=== PATIENT | male | born 1965 | race Caucasian/White ===

== ENCOUNTER 2025-08-24 09:32 | Inpatient (IN) ==
--- NOTE | 2025-08-24 09:50 | Emergency Department Note ---
Impression & Plan Pneumonia, Malignant neoplasm of base of tongue, Malnutrition, Acute dehydration ED Provider Note NAME: MELIDA ROBISON AGE: 60 SEX: M : 1965 ARRIVES VIA: Ambulance INFORMANT: Patient, ED PROVIDER(S): John Swanson MD CHIEF COMPLAINT: Hallucinations, headache MEDICAL DECISION MAKING: Patient presents with the above. IV was established and blood work was obtained. The patient appears very unkept and unconcerned about his care at home. Patient's blood work shows a white count of 16 patient with a hemoglobin of 9. Platelet count is 611. Kidney function is unremarkable but with prerenal azotemia. Patient with hypertension patient was ordered antibiotics given the patient's chest x-ray showed possible metastatic disease versus pneumonia. Patient was ordered additional IV fluids. I did speak to the hospitalist service and also mention that did not believe the patient was able to take care of himself and other his family taking adequate care of the patient at home. Patient was admitted to Dr. Brian. Discussion w/ other healthcare providers: Mayelin francis PA-C and Dr. Caldwell patient medicine service Prior /Outside records reviewed: none Differential diagnosis: Infection, dehydration, metabolic abnormality, hypo/hyperglycemia, electrolyte imbalance, anemia, UTI, pneumonia, thyroid dysfunction among others were considered. Diagnostics, as interpreted by me: ECG:Normal sinus rhythm, rate of 71, normal intervals, normal axis no ST elevations. Cardiac monitoring: An order was placed for continuous cardiac monitoring. The monitor shows a rate of 72 with sinus rhythm. Patient was placed on pulse oximetry Medical decision rules: none Imaging studies: I informally interpreted the patient's chest x-ray shows possible right-sided pneumonia with formal report to follow. HPI: Patient presents due to concern for headache and associated hallucinations reportedly. The patient states that he was carrying tomatoes on a trays a few "wood in a restaurant." The patient states that he dropped them all over himself. The patient states that his is lactating and he was "getting pissed off." Patient states that he began having frontal headaches last night. 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 PAST MEDICAL HISTORY: See Below PAST SURGICAL HISTORY: See Below SOCIAL HISTORY: See Below HOME MEDICATIONS: See Below ALLERGIES: See Below VITALS: See Below PHYSICAL EXAMINATION: GENERAL: NAD, non-toxic. Disheveled. EYE EXAM: Normal conjunctiva. PERRL, no anisocoria and EOM's grossly intact w/o pain. OROPHARYNX: Dry mucus membranes, poor dentition. NECK: Trachea midline, no stridor. Mass noted to the left side of the neck. LUNGS: Clear to auscultation. Normal chest wall mechanics. HEART: NSR, no MRG. ABDOMEN: Abdomen soft, non-tender, no masses, no rebound or guarding. BACK: No CVA TTP. SKIN: No rashes and no bruising. UPPER EXTREMITIES: Upper extremities are grossly normal. LOWER EXTREMITIES: Grossly normal, no edema. NEURO EXAM: Awake and alert, follows commands, no obvious facial asymmetry, normal speech, moves all 4 extremities. Good finger-nose, no drift. 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) Medical History Gastrostomy tube in place Family History Mother Stomach cancer, Onset Age: 78 chemo Father Lung cancer, Onset Age: 70 Social History Smoking Status: Heavy tobacco smoker Tobacco Type: Smokeless Tobacco (Dip or Chew) Age Started Using Tobacco: 10; Age Quit Using Tobacco: 59; packs per day: 2; Second Hand Exposure: Yes; Do You Dip or Chew Tobacco: Yes (history of); Hx Alcohol Use: No Hx Substance Use: No Preferred Language: Serbian Communication Ability: Effective Acid Tank Liner Required: No Beliefs That Will Affect Care: None marital status: Current Living Situation: Spouse Current Living Situation Comment: home with current occupational status: unemployed 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 [employer]; Other Information That Helps Us Care for You: No Feels Safe at Home: Yes Safety Concerns: Feels Safe At This Time Childhood Exposure to Second-Hand Smoke: Yes Assistive Devices: Walker Allergies Allergies Allergy/AdvReac Type Severity Reaction Status Date / Time No Known Drug Allergies Allergy Unknown Verified 08/24/25 18:11 Home Meds Home Medications Medication Instructions Recorded Confirmed acetaminophen 325 mg tablet 325 mg PO QID PRN Pain 06/12/25 08/24/25 (Tylenol) buprenorphine 5 mcg/hour weekly 1 patch transdermal Q7D 07/31/25 08/24/25 transdermal patch (Butrans) ibuprofen 200 mg tablet (Advil) 200 mg PO Q6H PRN Pain 07/31/25 08/24/25 guar gum (Nutrisource Fiber oral 4 g feeding tube UD 08/24/25 08/24/25 powder) lactulose 10 gram/15 mL oral 15 ml PO TID 08/24/25 08/24/25 solution morphine 15 mg immediate release 15 mg PO Q6H PRN Severe Pain 08/24/25 08/24/25 tablet (Scale Score 7-10) nutritional supplements 250 ea feeding tube UD 08/24/25 08/24/25 ondansetron 8 mg disintegrating 8 mg PO Q8H PRN Nausea 08/24/25 08/24/25 tablet prochlorperazine maleate 10 mg 10 mg PO Q6H PRN Nausea 08/24/25 08/24/25 tablet water 1 ea 08/24/25 Results & Data (ED) Home Medications Current Medication List: was personally reviewed by me Laboratory Data Attestation: I reviewed the patient's lab results. 08/25/25 07:04 08/25/25 07:04 Lab Results 08/24/25 Range/Units 10:07 WBC 16.29 H (4.8-10.8) K/ul RBC 3.45 L (4.70-6.10) M/uL Hgb 9.9 L (14.0-18.0) g/dl Hct 30.1 L (42.0-52.0) % MCV 87.2 (80.0-100.0) fL MCH 28.7 (25.0-34.0) pg MCHC 32.9 (32.0-36.0) g/dL RDW Std Deviation 43.8 (36.4-46.3) fL RDW Coeff of Brandon 13.8 (11.5-14.5) % Plt Count 611 H (130-400) K/uL MPV 9.6 (9.4-12.4) fL Immature Gran % (Auto) 0.5 % Neut % (Auto) 86.9 % Lymph % (Auto) 7.5 % [place] % (Auto) 4.8 % Eos % (Auto) 0.2 % Baso % (Auto) 0.1 % Neut # (Auto) 14.15 H (1.40-6.50) K/uL Lymph # (Auto) 1.22 (1.20-3.40) K/uL [place] # (Auto) 0.78 H (0.11-0.59) K/uL Eos # (Auto) 0.04 (0.00-0.50) K/uL Baso # (Auto) 0.02 (0.00-0.20) K/uL Immature Gran # (Auto) 0.08 (0.01-0.20) K/uL Sodium 135 L (136-145) mmol/L Potassium 3.6 (3.5-5.1) mmol/L Chloride 90 L (98-107) mmol/L Carbon Dioxide 37 H (21-32) mmol/L Anion Gap 8 (3-11) BUN 24 H (6-23) mg/dl Creatinine 0.64 (0.6-1.4) mg/dl Est Cr Clr Drug Dosing Not Reportable eGFR 107.71 BUN/Creatinine Ratio 37.5 H (10-20) Glucose 115 H (70-99(Fasting)) mg/dl Calcium 10.5 H (8.6-10.3) mg/dl Magnesium 2.3 (1.7-2.4) mg/dl Total Bilirubin 0.5 (0.2-1.0) mg/dl AST 17 (13-39) U/L ALT 15 (7-52) U/L Alkaline Phosphatase 83 (34-104) U/L Total Protein 7.5 (6.0-8.3) gm/dl Albumin 3.2 L (3.4-5.0) gm/dl Globulin 4.3 H (2.5-4.0) gm/dl Albumin/Globulin Ratio 0.7 L (0.9-2) Procalcitonin 0.08 (0-0.5) ng/ml TSH 0.349 (0.300-4.500) uIu/ml Administered Medications Buprenorphine HCl (Buprenorphine 5 Mcg/Hr Tdsy) 1 patch TD Q7D MOHINI Stop: 09/23/25 18:14 Last Admin: 08/24/25 20:32 Dose: 1 patch Documented By: VERONIKA Potassium Chloride/Sodium Chloride (Normal Saline W/20 Meq Kcl) 20 meq in 1,000 mls @ 100 mls/hr IV .Q10H MHOINI Stop: 08/26/25 07:44 Last Admin: 08/25/25 12:22 Dose: 100 mls/hr Documented By: EHSAN Miscellaneous (Remove & Waste Butrans Patch 1 Ea Ea) 1 each N/A Q7D MOHINI Stop: 09/23/25 18:13 Last Admin: 08/24/25 20:36 Dose: Not Given Documented By: VERONIKA [place] (Check Buprenorphine Patch) 1 each N/A QS MOHINI Stop: 09/23/25 18:02 Last Admin: 08/25/25 08:26 Dose: 1 each Documented By: Admin: 08/24/25 23:41 Dose: 1 each Documented By: Admin: 08/24/25 20:35 Dose: 1 each Documented By: VERONIKA [place] (Remove Nicoderm Patch) 1 each N/A DAILY@0859 [facility] Stop: 09/24/25 08:58 Last Admin: 08/25/25 08:26 Dose: Not Given Documented By: EHSAN Nicotine (Nicotine 14 Mg/24 Hr Patch) 1 patch TD QAM MOHINI Stop: 09/23/25 18:14 Last Admin: 08/25/25 08:26 Dose: Not Given Documented By: Admin: 08/24/25 20:23 Dose: Not Given Documented By: VERONIKA Nutritional Formula (Nutren Liqd 2.0 1,000 Ml Bag) 250 ml PEG QID@0800,1200,1600,2000 MOHINI Stop: 09/24/25 07:59 Last Admin: 08/25/25 12:22 Dose: 250 ml Documented By: Admin: 08/25/25 08:26 Dose: 250 ml Documented By: EHSAN Polyethylene Glycol (Polyethylene (Miralax) 17 Gm Pack) 17 gm PO DAILY MOHINI Stop: 09/24/25 08:59 Last Admin: 08/25/25 10:43 Dose: 17 gm Documented By: EHSAN Sterile Water (Tube Feeding Water Flush) 150 ml GT QID@0730,1130,1530,1930 MOHINI Stop: 09/24/25 07:29 Last Admin: 08/25/25 12:22 Dose: 150 ml Documented By: Admin: 08/25/25 08:26 Dose: 150 ml Documented By: EHSAN Sterile Water (Tube Feeding Water Flush) 150 ml GT QID@0830,1230,1630,2030 MOHINI Stop: 09/24/25 08:29 Last Admin: 08/25/25 12:22 Dose: 150 ml Documented By: Admin: 08/25/25 08:26 Dose: 150 ml Documented By: EHSAN Discontinued Medications Bisacodyl (Bisacodyl 10 Mg Supp) 10 mg NH NOW STA Stop: 08/24/25 16:33 Last Admin: 08/24/25 18:53 Dose: 10 mg Documented By: EHSAN Bisacodyl (Bisacodyl 10 Mg Supp) Confirm Administered Dose 10 mg NH .STK-MED ONE Stop: 08/24/25 18:52 Last Admin: 08/24/25 18:53 Dose: Not Given Documented By: EHSAN Sodium Chloride (Nss) 1,000 mls @ 999 mls/hr IV .Q1H1M MOHINI Stop: 08/24/25 11:15 Last Infusion: 08/24/25 12:55 Dose: Infused Documented By: Admin: 08/24/25 11:54 Dose: 999 mls/hr Documented By: KD Sodium Chloride (Nss) 1,000 mls @ 999 mls/hr IV .Q1H1M ONE Stop: 08/24/25 13:45 Last Infusion: 08/24/25 14:31 Dose: Infused Documented By: Admin: 08/24/25 13:30 Dose: 999 mls/hr Documented By: KD Ceftriaxone Sodium (Rocephin) 2,000 mg in 50 mls @ 100 mls/hr IV NOW STA Stop: 08/24/25 13:14 Last Infusion: 08/24/25 14:00 Dose: Infused Documented By: Admin: 08/24/25 13:30 Dose: 100 mls/hr Documented By: KD Sodium Chloride (Nss) 1,000 mls @ 999 mls/hr IV .Q1H1M ONE Stop: 08/24/25 14:22 Last Admin: 08/24/25 13:35 Dose: Not Given Documented By: KD Azithromycin (Zithromax) 500 mg in 255 mls @ 127.5 mls/hr IV NOW ONE Stop: 08/24/25 16:25 Last Infusion: 08/24/25 18:36 Dose: Infused Documented By: Admin: 08/24/25 15:35 Dose: 127.5 mls/hr Documented By: ARINA Piperacillin Sod/Tazobactam Sod (Zosyn) 4.5 gm in 100 mls @ 200 mls/hr IV ONE ONE; Protocol Stop: 08/25/25 09:14 Last Infusion: 08/25/25 11:15 Dose: Infused Documented By: Admin: 08/25/25 10:43 Dose: 200 mls/hr Documented By: EHSAN Ioversol (Optiray 320 100ml) 90 ml IV ONCE ONE Stop: 08/24/25 15:24 Last Admin: 08/24/25 15:24 Dose: 90 ml Documented By: HANY Nutritional Formula (Nutren Liqd 2.0 1,000 Ml Bag) 250 ml GJT [id number] MOHINI Stop: 09/23/25 18:59 Last Admin: 08/24/25 20:15 Dose: 250 ml Documented By: TIMMYK Potassium Chloride (Potassium Chloride 20 Meq/15 Ml Udc) 20 meq GT ONE ONE Stop: 08/24/25 18:16 Last Admin: 08/24/25 20:20 Dose: 20 meq Documented By: EFK Sterile Water (Tube Feeding Water Flush) 90 ml GT 0630,1030,1430,1830,2230 [facility]; Protocol Stop: 09/23/25 18:54 Last Admin: 08/24/25 23:42 Dose: Not Given Documented By: EFK Sterile Water (Tube Feeding Water Flush) 120 ml GT QID MOHINI Stop: 09/23/25 20:59 Last Admin: 08/24/25 20:16 Dose: 120 ml Documented By: TIMMYK Imaging Data Radiologist's Impression: Head CT 08/24/25 10:02 CT SCAN OF THE BRAIN WITHOUT IV CONTRAST CLINICAL HISTORY: Intermittent headaches. Visual hallucinations. COMPARISON STUDY: Head CT June 08, 2025. TECHNIQUE: Unenhanced axial CT scan of the brain was performed from the vertex to the skull base. A dose lowering technique was utilized adhering to the principles of ALARA. CT DOSE: 625.8 mGy.cm FINDINGS: Brain parenchyma: No acute intracranial hemorrhage, midline shift or mass effect is present. Hsu-white matter differentiation is preserved. There are no extra- axial fluid collections. There are no findings to suggest acute dural sinus thrombosis or acute territorial infarct. White matter hypodensities are similar to prior exam and favor small vessel disease. Ventricles, sulci, cisterns: There is no hydrocephalus. The basal cisterns are patent. Calvarium: Unremarkable. Sinuses and mastoids: The visualized paranasal sinuses are clear. The mastoid air cells are well pneumatized. Orbits: The bony orbits are grossly intact. IMPRESSION: No acute intracranial findings. No change in appearance of the brain. ACT 112: Negative or not required by law. Electronically signed by: Saul Segovia M.D. 08/24/2025 12:16 PM Chest X-Ray 08/24/25 10:07 XR chest 1V portable CLINICAL HISTORY: weakness COMPARISON STUDY: 06/08/2025 FINDINGS: There is an interval mass like density at the right lung apex. There is a faint nodular density lateral right midlung. No lobar consolidation or pleural effusion seen. No pneumothorax. IMPRESSION: Pulmonary masses/nodules on the right versus nodular pneumonia. Follow-up CT scan of the chest recommended. ACT 112: Negative or not required by law. Electronically signed by: Victor Manuel Vargas M.D. 08/24/2025 10:56 AM Discharge Plan Visit Data Chief Complaint: Headache Stated Complaint: HEADACHE, HALLUCINATIONS ED Provider: John Swanson Discharge Problem: Pneumonia, Malignant neoplasm of base of tongue, Malnutrition, Acute dehydration Patient Disposition: Admitted As Inpatient Condition: Fair Discharge Instructions Interventions: ED Discharge Assessment Last Done: 08/24/25 17:47 Discharge Problem: Pneumonia Qualifiers: Pneumonia type: due to unspecified organism Laterality: right Lung location: u nspecified part of lung Qualified Code(s): J18.9 - Pneumonia, unspecified organism Malnutrition Qualifiers: Malnutrition type: unspecified type Qualified Code(s): E46 - Unspecified protein-calorie malnutrition
[2025-08-24 10:22] LABS: Hematocrit (blood only) 30.1 % (42.0-52.0); Hemoglobin 9.9 g/dl (14.0-18.0); Immature Granulocytes # (auto) 0.08 K/uL (0.01-0.20); Immature Granulocytes % (auto) 0.5 %; Mean Corpuscular Hemoglobin 28.7 pg (25.0-34.0); Mean Corpuscular Volume 87.2 fL (80.0-100.0); Platelet Count 611 K/uL (130-400); RDW Standard Deviation 43.8 fL (36.4-46.3); Red Blood Count 3.45 M/uL (4.70-6.10); White Blood Count 16.29 K/ul (4.8-10.8)
[2025-08-24 10:45] LABS: Alanine Aminotransferase 15 U/L (7-52); Albumin Globulin Ratio 0.7 (0.9-2); Albumin Level 3.2 gm/dl (3.4-5.0); Alkaline Phosphatase 83 U/L (34-104); Anion Gap 8 (3-11); Bilirubin,Total 0.5 mg/dl (0.2-1.0); Blood Urea Nitrogen 24 mg/dl (6-23); Calcium 10.5 mg/dl (8.6-10.3); Carbon Dioxide 37 mmol/L (21-32); Chloride 90 mmol/L (98-107); Globulin 4.3 gm/dl (2.5-4.0); Glucose 115 mg/dl (70-99(Fasting)); Potassium 3.6 mmol/L (3.5-5.1); Sodium 135 mmol/L (136-145); Total Protein 7.5 gm/dl (6.0-8.3)
[2025-08-24 10:57] LABS: Thyroid Stimulating Hormone 0.349 uIu/ml (0.300-4.500)
--- NOTE | 2025-08-24 10:57 | XRay Report ---
XR chest 1V portable CLINICAL HISTORY: weakness COMPARISON STUDY: 06/08/2025 FINDINGS: There is an interval mass like density at the right lung apex. There is a faint nodular den sity lateral right midlung. No lobar consolidation or pleural effusion seen. No pneumothorax. IMPRESSION: Pulmonary masses/nodules on the right versus nodular pneumonia. Follow-up CT scan of the chest recommended. ACT 112: Negative or not required by law. Electronically signed by: Victor Manuel Vargas M.D. 08/24/2025 10:56 AM
[2025-08-24] MEDS: SODIUM CHLORIDE 0.9% 1,000 ML IV SCH (11:54)
--- NOTE | 2025-08-24 12:17 | CT Scan Report ---
CT SCAN OF THE BRAIN WITHOUT IV CONTRAST CLINICAL HISTORY: Intermittent headaches. Visual hallucinations. COMPARISON STUDY: Head CT June 08, 2025. TECHNIQUE: Unenhanced axial CT scan of the brain was performed from the vertex to the skull base. A dose lowering technique was utilized adhering to the principles of ALARA. CT DOSE: 625.8 mGy.cm FINDINGS: Brain parenchyma: No acute intracranial hemorrhage, midline shift or mass effect is present. Hsu-whi te matter differentiation is preserved. There are no extra-axial fluid collections. There are no find ings to suggest acute dural sinus thrombosis or acute territorial infarct. White matter hypodensities are similar to prior exam and favor small vessel disease. Ventricles, sulci, cisterns: There is no hydrocephalus. The basal cisterns are patent. Calvarium: Unremarkable. Sinuses and mastoids: The visualized paranasal sinuses are clear. The mastoid air cells are well pneu matized. Orbits: The bony orbits are grossly intact. IMPRESSION: No acute intracranial findings. No change in appearance of the brain. ACT 112: Negative or not required by law. Electronically signed by: Saul Segovia M.D. 08/24/2025 12:16 PM
--- NOTE | 2025-08-24 13:20 | History & Physical Report ---
<Statement entered by Nino Escalante DO - 08/24/25 21:32> I have seen and examined the patient and have discussed the case with the advance practice provider. I have reviewed the advanced practitioner's documentation, and I agree with, and take responsibility for that plan of care. Patient and essentially extremely overwhelmed with his care. Spent some time with both of them explaining that his symptoms are really related to the fact that he is not getting enough nutrition and hydration. Case management to help coordinate home assistance/home health care. Encouraged patient and to continue to reassess overall goals of care Plan of care as outlined below I spent a total of 21 minutes coordinating, documenting, and providing care for this patient excluding time spent by another provider/QHP. Date of Service August 24, 2025 Assessment & Plan (1) AMS (altered mental status): (2) Malnutrition: (3) Gastrostomy tube in place: (4) Tongue cancer: Plan: #Possible metabolic encephalopathy #Chronic anemia Patient discussed with ER provider Patient is 60 year old male with PMH oropharyngeal squamous cell carcinoma, h/o oropharyngeal bleeding in 05/2025, ongoing dysphagia and hoarseness, protein calorie malnutrition, has G tube in place and on tube feeds presented to ER with with c/o AMS with hallucinations last night. Currently pt not experiencing hallucinations, is alert, oriented to person, oly ce, season and year. In ER afebrile, P: 72, R: 18, BP 98/57, 96% on room air WBC: 16 (11 on 07/05/25), H/H: 9.9/30 (baseline hgb: 8's-10) CT Head:No acute intracranial findings. No change in appearance of the brain. In ER given 2L NSS NPO Will continue home tube feeds and water flushes at outpatient nutrition recommendations (Pt hasn't been receiving recommended amounts at home) 08/16/25 Outpatient Nutrition note: Nutren 2.0 administered by gravity bag five times a day (1,250 mL/day) -Each carton provides 500 kcals, 21 g protein, 173 mL water Water Flushes: 90 mL before and after each feed (900 mL). 120 mL water flushes QID (480 mL) 1 serving (4 g total weight, 3 g dietary fiber, 5 calories) of nutrisource fiber in with every feed. Place Medical Appliance Maker consult here Patient currently on morphine tablets. Will switch oral solution at this time given patient's dysphagia and will likely need discharged on solution. Continue buprenorphine patch. IV Tylenol prn 08/23/25 first dose of carboplatin. Started radiation this week. Following with med oncology, Dr Brown and radiation oncology, Dr Marino Haney CBC, CMP in am Per Outpatient chart review: 05/17/2025 CT chest: There is no evidence of metastatic disease. Small ground-glass centrilobular nodules throughout the lung elliott may be secondary to respiratory bronchiolitis. 05/30/2025 PET scan: 1. 7 (CC) x 4.6 (AP) x 4.1 (TV) cm metabolically-active necrotic mass within the left base of tongue/tonsillar fossa, consistent with biopsy-proven malignancy. 2. Metabolically-active necrotic bilateral level II; and left supraclavicular lymph node metastases. 3. 6.5 cm (CC) metabolically-active circumferential wall thickening within the ascending colon. Differential considerations include peristalsis and primary colon cancer. Further evaluation can be obtained with colonoscopy. #Possible Pneumonia DDx: malignancy CXR: Pulmonary masses/nodules on the right versus nodular pneumonia. Follow-up CT scan of the chest recommended. WBC: 16 In ER given 2L NSS, Rocephin Procalcitonin pending Obtain blood cultures Is aspiration risk Aspiration precautions Continue Rocephin, add Zithromax Obtain CT chest to R/L pneumonia versus malignancy UA pending CBC in am #Hypokalemia K: 3.6 Will give dose potassium elixer through Gtube today Magnesium lab pending Monitor daily labs, may need to further adjust #Chronic hypotension Likely secondary to poor intake Improved with IVF Monitor Restart tube feeds as above #Constipation Reported no BM >1 week Previously prescribed lactulose however pt not using Denies abdominal pain Obtain KUB Dulcolax suppository now #Tobacco use Prior cigarette smoker, reports quit but did smoke 1 cigarette this week Still chewing tobacco, reports 1 can a week Nicotine patch Encouraged cessation DVT Prophylaxis SCDs for now given h/o oropharyngeal bleeding Admit telemetry Discussed code status with patient and his . Patient voices DNR/DNI status and at bedside agrees. Follows with Dr Mancia for routine care Pt was seen and care coordinated with Dr Escalante. See addendum I spent a total of 79 minutes reviewing notes, outpatient records, labs, medication, coordinating, documenting and providing care for this patient excluding time spent in the performance of separately billed services and excluding time spent by another provider/QHP. History of Present Illness Chief Complaint: AMS Primary Care Provider: Abdon Mancia MD Patient is 60 year old male with PMH oropharyngeal squamous cell carcinoma, h/o oropharyngeal bleeding in 05/2025, ongoing dysphagia and hoarseness, protein calorie malnutrition, has G tube in place and on tube feeds presented to ER with with c/o AMS with hallucinations last night. Per she reports patient seemed to have visual hallucinations last night in which he reported he was carrying tomatoes. Per chart review feeding tube placed 07/05/2025. Per has just been doing feedings through tube for a couple of weeks as she reports she was unsure how to administer tube feeds. She expresses that she is overwhelmed and uncomfortable with tube feeds at home. She voices is trying to get home health nurse in to help. Per chart review patient to be receiving tube feeds five times a day but is giving three times a day as she states patient doesn't want any more frequent doses and states not doing the recommended amount of free water flushes. Reports patient takes pills by mouth and tries sipping on water but is often unable to swallow. Reports some intermittent choking. Patient reports still chewing tobacco. Patient now using morphine tablets and reports tries to cut them up smaller to assist in him taking. Reports patient tries not to take morphine very often but is using his buprenorphine patch. states will sometimes use ibuprofen as needed for ANNA, tongue and neck pain. Reports ongoing frontal ANNA that has been present since April 2025. denies any increased ANNA or intensity. Patient reports his goal would be to return home and is not interested in placement. Is following with oncology, Dr Brown and Radiation oncology, Dr Marino Haney. reports first chemo treatment was yesterday and states started radiation this week. Per outpatient chart review [facility] Palliative visit on 07/25/25 reporting intractable ANNA, had noted hypotension. Per outpatient review patient has had ongoing hypotension. reports has lactulose to use for constipation at home however has not been using. Patient reports been over a week since last BM. Denies fever/chills, diaphoresis, vomiting, diarrhea, dizziness, syncope, vision changes, CP, SOB, palpitations, rhinorrhea, abdominal pain, extremity edema, rashes, urinary symptoms. Allergies Allergy/AdvReac Type Severity Reaction Status Date / Time No Known Drug Allergies Allergy Unknown Verified 08/24/25 18:11 Home Medications Medication Instructions Recorded Confirmed Type acetaminophen 325 mg tablet 325 mg PO QID PRN Pain 06/12/25 08/24/25 History (Tylenol) buprenorphine 5 mcg/hour weekly 1 patch transdermal Q7D 07/31/25 08/24/25 History transdermal patch (Butrans) ibuprofen 200 mg tablet (Advil) 200 mg PO Q6H PRN Pain 07/31/25 08/24/25 History guar gum (Nutrisource Fiber oral 4 g feeding tube UD 08/24/25 08/24/25 History powder) lactulose 10 gram/15 mL oral 15 ml PO TID 08/24/25 08/24/25 History solution morphine 15 mg immediate release 15 mg PO Q6H PRN Severe Pain 08/24/25 08/24/25 History tablet (Scale Score 7-10) nutritional supplements 250 ea feeding tube UD 08/24/25 08/24/25 History ondansetron 8 mg disintegrating 8 mg PO Q8H PRN Nausea 08/24/25 08/24/25 History tablet prochlorperazine maleate 10 mg 10 mg PO Q6H PRN Nausea 08/24/25 08/24/25 History tablet water 1 ea 08/24/25 History Past Med/Surg History Problem List Tongue cancer Malnutrition AMS (altered mental status) Weight loss Abnormal PET scan of colon Malignant neoplasm of base of tongue (Chronic 05/17/25) Medical History Gastrostomy tube in place Family History Mother Stomach cancer, Onset Age: 78 chemo Father Lung cancer, Onset Age: 70 Social History Smoking Status: Heavy tobacco smoker Tobacco Type: Smokeless Tobacco (Dip or Chew) Age Started Using Tobacco: 10; Age Quit Using Tobacco: 59; packs per day: 2; Second Hand Exposure: Yes; Do You Dip or Chew Tobacco: Yes (history of); Hx Alcohol Use: No Hx Substance Use: No Preferred Language: Tajik Hybrid Car Mechanic Required: No Beliefs That Will Affect Care: None marital status: Current Living Situation: Spouse Current Living Situation Comment: home with current occupational status: unemployed 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 [employer]; Other Information That Helps Us Care for You: No Feels Safe at Home: Yes Safety Concerns: Feels Safe At This Time Childhood Exposure to Second-Hand Smoke: Yes Assistive Devices: Walker Review of Systems Review of Systems: All systems reviewed & are unremarkable except as noted in HPI & below Physical Exam Physical Exam: General: Cachectic, + chronic ill-appearing male, +disheveled, malodorous Head: normocephalic, atraumatic Eyes: conjunctiva non-injected, anicteric ENT: normal inspection external ears, nose, +poor and missing dentition, +tongue edema, greater to left side with known mass, membranes dry, +muffled voice and difficult to understand Neck: +large mass left neck, mild tenderness to palpation, trachea midline Lungs: no respiratory distress, 98% on RA, no wheezing/rhonchi/rales noted CV: RRR, no murmur, no pretibial edema Abd: cachectic appearance, hypoactive BS, +feeding tube in place and appears soiled, no surrounding erythema noted, soft, non-tender Ext: no cyanosis, no calf tenderness Neuro: Alert, oriented to person, place and season and year. Unsure of month or day of week, no focal deficits noted, normal affect Skin: warm, dry Results & Data Results & Data Vital Signs (Past 12 Hours) Vital Signs Temp Pulse Pulse Resp BP BP Pulse Ox 08/24/25 12:32 71 18 08/24/25 12:30 92/57 L 08/24/25 12:23 77 16 08/24/25 12:20 75 17 08/24/25 12:11 72 17 08/24/25 12:05 69 17 97/55 L 96 08/24/25 12:02 70 08/24/25 11:36 68 14 95/58 L 98 08/24/25 10:44 75 18 102/60 97 08/24/25 10:07 97 08/24/25 09:49 36.6 C 72 18 98/57 L 96 O2 Del Method 08/24/25 12:32 08/24/25 12:30 08/24/25 12:23 08/24/25 12:20 08/24/25 12:11 08/24/25 12:05 Room Air 08/24/25 12:02 08/24/25 11:36 Room Air 08/24/25 10:44 Room Air 08/24/25 10:07 Room Air 08/24/25 09:49 Room Air Laboratory Results Short CBC 08/24/25 Range/Units 10:07 WBC 16.29 H (4.8-10.8) K/ul Hgb 9.9 L (14.0-18.0) g/dl Hct 30.1 L (42.0-52.0) % Plt Count 611 H (130-400) K/uL BMP 08/24/25 10:07 Sodium 135 L Potassium 3.6 Chloride 90 L Carbon Dioxide 37 H BUN 24 H Creatinine 0.64 Glucose 115 H Calcium 10.5 H Liver Function 08/24/25 Range/Units 10:07 Total Bilirubin 0.5 (0.2-1.0) mg/dl AST 17 (13-39) U/L ALT 15 (7-52) U/L Alkaline Phosphatase 83 (34-104) U/L Albumin 3.2 L (3.4-5.0) gm/dl Diagnostic Findings Head CT 08/24/25 10:02 CT SCAN OF THE BRAIN WITHOUT IV CONTRAST CLINICAL HISTORY: Intermittent headaches. Visual hallucinations. COMPARISON STUDY: Head CT June 08, 2025. TECHNIQUE: Unenhanced axial CT scan of the brain was performed from the vertex to the skull base. A dose lowering technique was utilized adhering to the principles of ALARA. CT DOSE: 625.8 mGy.cm FINDINGS: Brain parenchyma: No acute intracranial hemorrhage, midline shift or mass effect is present. Hsu-white matter differentiation is preserved. There are no extra- axial fluid collections. There are no findings to suggest acute dural sinus thrombosis or acute territorial infarct. White matter hypodensities are similar to prior exam and favor small vessel disease. Ventricles, sulci, cisterns: There is no hydrocephalus. The basal cisterns are patent. Calvarium: Unremarkable. Sinuses and mastoids: The visualized paranasal sinuses are clear. The mastoid air cells are well pneumatized. Orbits: The bony orbits are grossly intact. IMPRESSION: No acute intracranial findings. No change in appearance of the brain. ACT 112: Negative or not required by law. Electronically signed by: Saul Segovia M.D. 08/24/2025 12:16 PM Chest X-Ray 08/24/25 10:07 XR chest 1V portable CLINICAL HISTORY: weakness COMPARISON STUDY: 06/08/2025 FINDINGS: There is an interval mass like density at the right lung apex. There is a faint nodular density lateral right midlung. No lobar consolidation or pleural effusion seen. No pneumothorax. IMPRESSION: Pulmonary masses/nodules on the right versus nodular pneumonia. Follow-up CT scan of the chest recommended. ACT 112: Negative or not required by law. Electronically signed by: Victor Manuel Vargas M.D. 08/24/2025 10:56 AM KUB X-Ray 08/24/25 14:17 KUB HISTORY: constipation COMPARISON STUDY: None FINDINGS: PEG tube is present. There is moderate retained stool. No bowel obstruction seen. No gross free air. IMPRESSION: Moderate retained stool. ACT 112: Negative or not required by law. The above report was generated using voice recognition software. It may contain grammatical, syntax or spelling errors. Electronically signed by: Victor Manuel Vargas M.D. 08/24/2025 3:03 PM
[2025-08-24] MEDS: SODIUM CHLORIDE 0.9% 1,000 ML IV ONE ×2 (13:30→13:35)
[2025-08-24] MEDS: cefTRIAXone SODIUM 2,000 MG/50 ML BAG IV STA (13:30)
--- NOTE | 2025-08-24 14:29 | Electrocardiogram Report ---
Test Reason : Blood Pressure : */* mmHG Vent. Rate : 71 BPM Atrial Rate : 71 BPM P-R Int : 128 ms QRS Dur : 84 ms QT Int : 406 ms P-R-T Axes : 70 62 51 degrees QTcB Int : 441 ms Normal sinus rhythm with sinus arrhythmia Normal ECG No previous ECGs available Confirmed by Krishna Hubbard ([id number]) on 08/24/2025 2:29:19 PM Referred By: REFERRED SELF Confirmed By: Krishna Hubbard
--- NOTE | 2025-08-24 15:05 | XRay Report ---
KUB HISTORY: constipation COMPARISON STUDY: None FINDINGS: PEG tube is present. There is moderate retained stool. No bowel obstruction seen. No gross free air. IMPRESSION: Moderate retained stool. ACT 112: Negative or not required by law. The above report was generated using voice recognition software. It may contain grammatical, syntax o r spelling errors. Electronically signed by: Victor Manuel Vargas M.D. 08/24/2025 3:03 PM
[2025-08-24 15:23] LABS: Magnesium 2.3 mg/dl (1.7-2.4)
[2025-08-24] MEDS: OPTIRAY 320 100ml IV ONE (15:24)
[2025-08-24] MEDS: AZITHROMYCIN 500 MG/255 ML BAG IV ONE (15:35)
--- NOTE | 2025-08-24 16:09 | CT Scan Report ---
CT SCAN OF THE CHEST WITH IV CONTRAST CLINICAL HISTORY: Weakness. Abnormal chest radiograph. Pneumonia versus malignancy. History of head a nd neck cancer. COMPARISON STUDY: Chest radiographs June 08, 2025 and August 24, 2025. TECHNIQUE: Following the IV administration of 90 cc of Optiray 320, CT scan of the thorax was perform ed from the thoracic inlet to the upper abdomen. Images are reviewed in the axial, sagittal, and paige nal planes. IV contrast was administered without complication. A dose lowering technique was utilize d adhering to the principles of ALARA. CT DOSE: 321.59 mGy.cm FINDINGS: Prominent left level 1 and 2 lymph nodes are partially imaged on this examination. There is a prominent right hilar lymph node on image [id number] measures 1.6 x 1.4 cm. Size of the heart is norm al. There is no pericardial effusion. No pneumothorax or pleural effusion is present. Note is made of a 6.2 x 3.2 cm subpleural irregular right upper lobe opacity which corresponds to an abnormality on chest radiograph. This contains a rim-enhancing pocket of fluid and gas that measures 2.9 cm. There i s a similar-appearing but smaller 2.8 x 2.7 cm right upper lobe subpleural opacity which contains a s mall pocket of fluid and gas which measures 1.2 cm. Additional mild alveolar opacities within the rig ht upper lobe are present. There is associated interlobular septal thickening. Left lung is clear. Ga strostomy tube is incidentally noted. Visualized portions of the upper abdomen are unremarkable. IMPRESSION: 1. Two subpleural right upper lobe irregular opacities measuring up to 6.2 x 3.2 cm. These each conta in a rim-enhancing pocket of gas and fluid which measure up to 2.9 cm suggestive of small abscesses. These findings favor an infectious process such as necrotizing pneumonia, particularly given addition al airspace opacities within the right upper lobe. Although less likely, a neoplastic process cannot be completely excluded. Therefore, a short-term follow-up chest CT in one month to ensure resolution is recommended. 2. Prominent right hilar lymph node. This is likely reactive but should be assessed on follow-up CT. ACT 112: Negative or not required by law. Electronically signed by: Saul Segovia M.D. 08/24/2025 4:08 PM
[2025-08-24] MEDS ORDERED: ACETAMINOPHEN 1,000 MG/100 ML VIAL IV PRN (18:03)
[2025-08-24] MEDS ORDERED: MoRPHine SULFATE 10 MG/0.5 ML UDP PO PRN (18:03)
[2025-08-24] MEDS ORDERED: ONDANSETRON INJ 2 MG/ML 2 ML VIAL IV PRN (18:03)
[2025-08-24] MEDS ORDERED: TUBE FEEDING WATER FLUSH GT SCH ×3 (20:00→23:30)
[2025-08-24] MEDS: NUTREN LIQD 2.0 1,000 ML BAG GJT SCH (20:15)
[2025-08-24] MEDS: TUBE FEEDING WATER FLUSH GT SCH ×2 (20:16→23:42)
[2025-08-24] MEDS: POTASSIUM CHLORIDE 20 MEQ/15 ML UDC GT ONE (20:20)
[2025-08-24] MEDS: NICOTINE 14 MG/24 HR PATCH TD SCH (20:23)
[2025-08-24] MEDS: BUPRENORPHINE 5 MCG/HR TDSY TD SCH (20:32)
[2025-08-24] MEDS: CHECK BUPRENORPHINE PATCH SCH (20:35)
[2025-08-24] MEDS: REMOVE & WASTE BUTRANS PATCH 1 EA EA SCH (20:36)
[2025-08-25 07:30] LABS: Hematocrit (blood only) 26.5 % (42.0-52.0); Hemoglobin 8.4 g/dl (14.0-18.0); Immature Granulocytes # (auto) 0.10 K/uL (0.01-0.20); Immature Granulocytes % (auto) 0.6 %; Mean Corpuscular Hemoglobin 27.5 pg (25.0-34.0); Mean Corpuscular Volume 86.6 fL (80.0-100.0); Platelet Count 495 K/uL (130-400); RDW Standard Deviation 44.3 fL (36.4-46.3); Red Blood Count 3.06 M/uL (4.70-6.10); White Blood Count 16.63 K/ul (4.8-10.8)
[2025-08-25] MEDS ORDERED: TUBE FEEDING WATER FLUSH GT SCH (08:00)
[2025-08-25] MEDS ORDERED: NUTREN LIQD 2.0 1,000 ML BAG GJT SCH (08:00)
[2025-08-25] MEDS: TUBE FEEDING WATER FLUSH GT SCH ×3 (08:26→20:33)
[2025-08-25] MEDS: REMOVE NICODERM PATCH SCH (08:26)
[2025-08-25] MEDS: NUTREN LIQD 2.0 1,000 ML BAG PEG SCH (08:26)
[2025-08-25 08:27] LABS: Alanine Aminotransferase 10.0 U/L (7-52); Albumin Globulin Ratio 0.8 (0.9-2); Albumin Level 2.7 gm/dl (3.4-5.0); Alkaline Phosphatase 61.0 U/L (34-104); Anion Gap 5.0 (3-11); Bilirubin,Total 0.3 mg/dl (0.2-1.0); Blood Urea Nitrogen 16.0 mg/dl (6-23); Calcium 9.0 mg/dl (8.6-10.3); Carbon Dioxide 35.0 mmol/L (21-32); Chloride 96.0 mmol/L (98-107); Creatinine Clr Calc Pharmacy 153.6 ml/min; Globulin 3.2 gm/dl (2.5-4.0); Glucose 100.0 mg/dl (70-99(Fasting)); Magnesium 2.0 mg/dl (1.7-2.4); Potassium 3.4 mmol/L (3.5-5.1); Sodium 136.0 mmol/L (136-145); Total Protein 5.9 gm/dl (6.0-8.3)
--- NOTE | 2025-08-25 09:04 | Pulmonary Consultation ---
Date of Consultation August 25, 2025 Assessment & Plan (1) Multiple lung abscesses: * Two RUL abscesses most likely secondary to aspiration in patient with history of aspiration who has been non-compliant with NPO orders * I sent NT suctionate for culture. * Continue Zosyn and may switch to Unasyn depending on culture results. IV treatment for at least 2 weeks then may switch to PO accordingly. May want to consider PICC accordingly. * Will require treatment with Beta-Lactam+Beta-Lactamase and anaerobic coverage for 4-6 weeks depending on rate of response. * Can switch to Per PEG treatment after 2 weeks. Augmentin unless MRSA or Pseudomonas or resistant organisms recovered. History of Present Illness Reason for Consultation: Suspected lung abscesses Requesting Physician: Dr. Jones Attending Physician: Tomi Jones MD History of Present Illness The patient is a very pleasant 60-year-old male who presented to the ED due to concern for headache and associated hallucinations. He reported that the previous night, he began experiencing frontal headaches and hallucinations, including confusion about carrying tomatoes on trays and references to his lactating, which led to frustration. 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 He had recently started radiation therapy and received his first dose of carboplatin during the week of presentation. Laboratory evaluation revealed leukocytosis (WBC 16). Imaging included a CT head, which showed no acute intracranial findings, and a chest X-ray with p ulmonary masses/nodules on the right, raising concern for either nodular pneumonia or malignancy. A follow-up CT chest suggested possible abscesses in the RUL. The patient had been noted to be at risk for aspiration and placed on aspiration precautions. The patients past medical history included oropharyngeal squamous cell carcinoma, chronic anemia, protein-calorie malnutrition, gastrostomy tube dependence, prior oropharyngeal bleeding, and a history of tobacco use. When I saw the patient in his room he was lying in bed in no distress and breathing room-air. It was very difficulty to understand what he was trying to say, but he was able to convey that he was not dyspneic, at least at rest, and had frequent cough. He was having difficulty with throat secretions. He denied chest pain. Apparently the patient was taking food by mouth despite instructions for strict NPO and to take nutrition via PEG. On close examination there was strong smell from his mouth reminiscent of anaerobic infections. I performed NT suction through the left naris. I was able to obtain some slightly reddish mucus. Allergies Allergy/AdvReac Type Severity Reaction Status Date / Time No Known Drug Allergies Allergy Unknown Verified 08/24/25 18:11 Home Medications Medication Instructions Recorded Confirmed Type acetaminophen 325 mg tablet 325 mg PO QID PRN Pain 06/12/25 08/24/25 History (Tylenol) buprenorphine 5 mcg/hour weekly 1 patch transdermal Q7D 07/31/25 08/24/25 History transdermal patch (Butrans) ibuprofen 200 mg tablet (Advil) 200 mg PO Q6H PRN Pain 07/31/25 08/24/25 History guar gum (Nutrisource Fiber oral 4 g feeding tube UD 08/24/25 08/24/25 History powder) lactulose 10 gram/15 mL oral 15 ml PO TID 08/24/25 08/24/25 History solution morphine 15 mg immediate release 15 mg PO Q6H PRN Severe Pain 08/24/25 08/24/25 History tablet (Scale Score 7-10) nutritional supplements 250 ea feeding tube UD 08/24/25 08/24/25 History ondansetron 8 mg disintegrating 8 mg PO Q8H PRN Nausea 08/24/25 08/24/25 History tablet prochlorperazine maleate 10 mg 10 mg PO Q6H PRN Nausea 08/24/25 08/24/25 History tablet water 1 ea 08/24/25 History Patient History Medical History Gastrostomy tube in place Family History Mother Stomach cancer, Onset Age: 78 chemo Father Lung cancer, Onset Age: 70 Social History Smoking Status: Heavy tobacco smoker Tobacco Type: Smokeless Tobacco (Dip or Chew) Age Started Using Tobacco: 10; Age Quit Using Tobacco: 59; packs per day: 2; Second Hand Exposure: Yes; Do You Dip or Chew Tobacco: Yes (history of); Hx Alcohol Use: No Hx Substance Use: No Preferred Language: Nepali Communication Ability: Effective Child Psychology Teacher Required: No Beliefs That Will Affect Care: None marital status: Current Living Situation: Spouse Current Living Situation Comment: home with current occupational status: unemployed 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 However, I was able to obtain some pertinent info as noted in HPI. Physical Exam Physical Exam: General: In no acute distress, breathing room-air. On close examination there was strong smell from his mouth reminiscent of anaerobic infections. Skin: Warm and dry to touch. Noobvious lesions. Eyes: Anicteric.Noconjunctival hyperemia or exudates.No periorbital edema. ENT: No oral thrush. Poor dentition. Tongue edema more on the left. Neck: Large egg-sized oval mass at the left side of the neck. Respiratory: Diffusely decreased breath sounds, no wheezing or crackles. No use of accessory muscles and no prolonged exhalation. Cardiac: Distant sounds, regular rhythm, no murmurs, no gallops, no rubs; could not appreciate JV pulse elevation. GI: Soft, nontender. PEG in place. Extremities Mild clubbing,no cyanosis,no edema. Neuro: No gross motor deficits. Difficult to understand speech secondary to throat cancer. Results & Data Results & Data Vital Signs (Past 12 Hours) Vital Signs Temp Pulse Pulse Pulse Resp BP BP 08/25/25 07:59 79 08/25/25 07:27 37.1 C 79 18 100/61 08/25/25 03:45 36.5 C 79 18 94/57 L 08/24/25 23:48 78 08/24/25 22:55 37.0 C 78 18 95/57 L Pulse Ox O2 Del Method 08/25/25 07:59 08/25/25 07:27 95 Room Air 08/25/25 03:45 96 Room Air 08/24/25 23:48 08/24/25 22:55 97 Room Air Laboratory Results 08/24/25 14:41 Aerobic Blood Culture - Pending Blood Anaerobic Blood Culture - Pending 08/24/25 14:41 Aerobic Blood Culture - Pending Blood Anaerobic Blood Culture - Pending 08/25/25 08/24/25 07:04 10:07 WBC 16.63 H 16.29 H RBC 3.06 L 3.45 L Hgb 8.4 L 9.9 L Hct 26.5 L 30.1 L MCV 86.6 87.2 MCH 27.5 28.7 MCHC 31.7 L 32.9 RDW Std Deviation 44.3 43.8 RDW Coeff of [place] 14.1 13.8 Plt Count 495 H 611 H MPV 9.4 9.6 Immature Gran % (Auto) 0.6 0.5 Neut % (Auto) 85.1 86.9 Lymph % (Auto) 7.6 7.5 [place] % (Auto) 5.9 4.8 Eos % (Auto) 0.7 0.2 Baso % (Auto) 0.1 0.1 Neut # (Auto) 14.14 H 14.15 H Lymph # (Auto) 1.27 1.22 [place] # (Auto) 0.98 H 0.78 H Eos # (Auto) 0.12 0.04 Baso # (Auto) 0.02 0.02 Immature Gran # (Auto) 0.10 0.08 Sodium 136 135 L Potassium 3.4 L 3.6 Chloride 96 L 90 L Carbon Dioxide 35 H 37 H Anion Gap 5 8 BUN 16 24 H Creatinine 0.40 L 0.64 Est Cr Clr Drug Dosing 153.6 Not Reportable eGFR 124.13 107.71 BUN/Creatinine Ratio 40.0 H 37.5 H Glucose 100 H 115 H Calcium 9.0 10.5 H Magnesium 2.0 2.3 Total Bilirubin 0.3 0.5 AST 11 L 17 ALT 10 15 Alkaline Phosphatase 61 83 Total Protein 5.9 L D 7.5 Albumin 2.7 L 3.2 L Globulin 3.2 4.3 H Albumin/Globulin Ratio 0.8 L 0.7 L Procalcitonin 0.08 TSH 0.[address] 08/24/25 10:02 CT SCAN OF THE BRAIN WITHOUT IV CONTRAST CLINICAL HISTORY: Intermittent headaches. Visual hallucinations. COMPARISON STUDY: Head CT June 08, 2025. TECHNIQUE: Unenhanced axial CT scan of the brain was performed from the vertex to the skull base. A dose lowering technique was utilized adhering to the principles of ALARA. CT DOSE: 625.8 mGy.cm FINDINGS: Brain parenchyma: No acute intracranial hemorrhage, midline shift or mass effect is present. Hsu-white matter differentiation is preserved. There are no extra- axial fluid collections. There are no findings to suggest acute dural sinus thrombosis or acute territorial infarct. White matter hypodensities are similar to prior exam and favor small vessel disease. Ventricles, sulci, cisterns: There is no hydrocephalus. The basal cisterns are patent. Calvarium: Unremarkable. Sinuses and mastoids: The visualized paranasal sinuses are clear. The mastoid air cells are well pneumatized. Orbits: The bony orbits are grossly intact. IMPRESSION: No acute intracranial findings. No change in appearance of the brain. Electronically signed by: Saul Segovia M.D. 08/24/2025 12:16 PM Chest X-Ray 08/24/25 10:07 XR chest 1V portable CLINICAL HISTORY: weakness COMPARISON STUDY: 06/08/2025 FINDINGS: There is an interval mass like density at the right lung apex. There is a faint nodular density lateral right midlung. No lobar consolidation or pleural effusion seen. No pneumothorax. IMPRESSION: Pulmonary masses/nodules on the right versus nodular pneumonia. Follow-up CT scan of the chest recommended. Electronically signed by: Victor Manuel Vargas M.D. 08/24/2025 10:56 AM KUB X-Ray 08/24/25 14:17 KUB HISTORY: constipation COMPARISON STUDY: None FINDINGS: PEG tube is present. There is moderate retained stool. No bowel obstruction seen. No gross free air. IMPRESSION: Moderate retained stool. Electronically signed by: Victor Manuel Vargas M.D. 08/24/2025 3:[address] 08/24/25 15:00 CT SCAN OF THE CHEST WITH IV CONTRAST CLINICAL HISTORY: Weakness. Abnormal chest radiograph. Pneumonia versus malignancy. History of head and neck cancer. COMPARISON STUDY: Chest radiographs June 08, 2025 and August 24, 2025. TECHNIQUE: Following the IV administration of 90 cc of Optiray 320, CT scan of the thorax was performed from the thoracic inlet to the upper abdomen. Images are reviewed in the axial, sagittal, and coronal planes. IV contrast was admin istered without complication. A dose lowering technique was utilized adhering to the principles of ALARA. CT DOSE: 321.59 mGy.cm FINDINGS: Prominent left level 1 and 2 lymph nodes are partially imaged on this examination. There is a prominent right hilar lymph node on image [id number] measures 1.6 x 1.4 cm. Size of the heart is normal. There is no pericardial effusion. No pneumothorax or pleural effusion is present. Note is made of a 6.2 x 3.2 cm subpleural irregular right upper lobe opacity which corresponds to an abnormality on chest radiograph. This contains a rim-enhancing pocket of fluid and gas that measures 2.9 cm. There is a similar-appearing but smaller 2.8 x 2.7 cm right upper lobe subpleural opacity which contains a small pocket of fluid and gas which measures 1.2 cm. Additional mild alveolar opacities within the right upper lobe are present. There is associated interlobular septal thickening. Left lung is clear. Gastrostomy tube is incidentally noted. Visualized portions of the upper abdomen are unremarkable. IMPRESSION: 1. Two subpleural right upper lobe irregular opacities measuring up to 6.2 x 3.2 cm. These each contain a rim-enhancing pocket of gas and fluid which measure up to 2.9 cm suggestive of small abscesses. These findings favor an infectious process such as necrotizing pneumonia, particularly given additional airspace opacities within the right upper lobe. Although less likely, a neoplastic process cannot be completely excluded. Therefore, a short-term follow-up chest CT in one month to ensure resolution is recommended. 2. Prominent right hilar lymph node. This is likely reactive but should be assessed on follow-up CT. Electronically signed by: Saul Segovia M.D. 08/24/2025 4:08 PM Medications Administered Home Medications Medication Instructions Recorded Confirmed Last Taken acetaminophen 325 mg tablet 325 mg PO QID PRN Pain 06/12/25 08/24/25 Unknown (Tylenol) buprenorphine 5 mcg/hour weekly 1 patch transdermal Q7D 07/31/25 08/24/25 08/17/25 transdermal patch (Butrans) ibuprofen 200 mg tablet (Advil) 200 mg PO Q6H PRN Pain 07/31/25 08/24/25 08/24/25 guar gum (Nutrisource Fiber oral 4 g feeding tube UD 08/24/25 08/24/25 Unknown powder) lactulose 10 gram/15 mL oral 15 ml PO TID 08/24/25 08/24/25 Unknown solution morphine 15 mg immediate release 15 mg PO Q6H PRN Severe Pain 08/24/25 08/24/25 Unknown tablet (Scale Score 7-10) nutritional supplements 250 ea feeding tube UD 08/24/25 08/24/25 08/24/25 08:00 ondansetron 8 mg disintegrating 8 mg PO Q8H PRN Nausea 08/24/25 08/24/25 Unknown tablet prochlorperazine maleate 10 mg 10 mg PO Q6H PRN Nausea 08/24/25 08/24/25 Unknown tablet water 1 ea 08/24/25 Unknown Active Medications Generic Name Dose Route Start Last Admin Trade Name Freq PRN Reason Stop Dose Admin Buprenorphine HCl 1 patch 08/24/25 18:15 08/24/25 20:32 Buprenorphine 5 Mcg/Hr Tdsy TD 09/23/25 18:14 1 patch Q7D MOHINI Administration Miscellaneous 1 each 08/24/25 18:14 08/24/25 20:36 Remove & Waste Butrans Patch 1 Ea Ea N/A 09/23/25 18:13 Not Given Q7D MOHINI Miscellaneous 1 each 08/24/25 18:03 08/25/25 08:26 Check Buprenorphine Patch N/A 09/23/25 18:02 1 each QS MOHINI Administration Miscellaneous 1 each 08/25/25 08:59 08/25/25 08:26 Remove Nicoderm Patch N/A 09/24/25 08:58 Not Given DAILY@0859 MOHINI Nicotine 1 patch 08/24/25 18:15 08/25/25 08:26 Nicotine 14 Mg/24 Hr Patch TD 09/23/25 18:14 Not Given QAM MOHINI Nutritional Formula 250 ml 08/25/25 08:00 08/25/25 08:26 Nutren Liqd 2.0 1,000 Ml Bag PEG 09/24/25 07:59 250 ml QID@0800,1200,1600,2000 MOHINI Administration Sterile Water 150 ml 08/25/25 07:30 08/25/25 08:26 Tube Feeding Water Flush GT 09/24/25 07:29 150 ml QID@0730,1130,1530,1930 MOHINI Administration Sterile Water 150 ml 08/25/25 08:30 08/25/25 08:26 Tube Feeding Water Flush GT 09/24/25 08:29 150 ml QID@0830,1230,1630,2030 MOHINI Administration PG Care Time/CCT Total # of Minutes Spent Total Time Spent with Patient: Total time spent is greater than 50% in coordination of care (as documented) at patient's floor/unit and/or counseling patient: 65 Coding Level of Care Code 43060 IN/OBS CONSULT LVL 4,60M Diagnoses Multiple lung abscesses J85.2 Time Spent (min) 65
[2025-08-25] MEDS: POLYETHYLENE (MIRALAX) 17 GM PACK PO SCH (10:43)
[2025-08-25] MEDS: PIPERACILLIN/TAZOBACTAM 4.5 GM/100 ML BAG IV ONE (10:43)
[2025-08-25] MEDS: NSS + 20MEQ KCL 20 MEQ/1,000 ML BAG IV SCH (12:22)
[2025-08-25] MEDS ORDERED: cefTRIAXone SODIUM 2,000 MG/50 ML BAG IV SCH (13:00)
--- NOTE | 2025-08-25 13:45 | Hospitalist Progress Note ---
Date of Service August 25, 2025 Assessment & Plan (1) AMS (altered mental status): (2) Malnutrition: (3) Gastrostomy tube in place: (4) Tongue cancer: Plan: Patient is 60 year old male with PMH oropharyngeal squamous cell carcinoma, h/o oropharyngeal bleeding in 05/2025, ongoing dysphagia and hoarseness, protein calorie malnutrition, has G tube in place and on tube feeds presented to ER with with c/o AMS with hallucinations last night. Currently pt not experiencing hallucinations, is alert, oriented to person, place, season and year. Altered mental status likely acute metabolic encephalopathy Hallucinations Dehydration --CT Head:No acute intracranial findings. No change in appearance of the brain. Mental status seems to be back to baseline Cautious use of narcotics IV fluids as needed Monitor Multiple lung abscesses--POA Likely due to aspiration/noncompliance with strict n.p.o. --CT Chest:Two subpleural right upper lobe irregular opacities measuring up to 6.2 x 3.2 cm. These each contain a rim-enhancing pocket of gas and fluid which measure up to 2.9 cm suggestive of small abscesses. These findings favor an infectious process such as necrotizing pneumonia, particularly given additional airspace opacities within the right upper lobe. Although less likely, a neoplastic process cannot be completely excluded. Therefore, a short-term follow-up chest CT in one month to ensure resolution is recommended. Prominent right hilar lymph node. This is likely reactive but should be assessed on follow-up CT. -- Normal procalcitonin --Blood cultures pending --Sputum cultures pending Continue Zosyn, azithromycin Will need prolonged course of antibiotics Appreciate pulmonology input Strict n.p.o., aspiration precautions Saturating well on room air Oral hygiene, suctioning as needed Oropharyngeal squamous cell carcinoma H/O oropharyngeal bleeding Severe protein calorie malnutrition --Strict n.p.o. Very high risk for aspiration Continue tube feeds with water flushes Dietitian consulted 08/16/25 Outpatient Nutrition note: Nutren 2.0 administered by gravity bag five times a day (1,250 mL/day) -Each carton provides 500 kcals, 21 g protein, 173 mL water Water Flushes: 90 mL before and after each feed (900 mL). 120 mL water flushes QID (480 mL) 1 serving (4 g total weight, 3 g dietary fiber, 5 calories) of nutrisource fiber in with every feed. Place Dowel Sticker Operator consult here Patient currently on morphine tablets. Will switch oral solution at this time given patient's dysphagia and will likely need discharged on solution. Continue buprenorphine patch. IV Tylenol prn 08/23/25 first dose of carboplatin. Started radiation this week. Following with med oncology, Dr Brown and radiation oncology, Dr Marino Haney CBC, CMP in am Per Outpatient chart review: 05/17/2025 CT chest: There is no evidence of metastatic disease. Small ground-glass centrilobular nodules throughout the lung elliott may be secondary to respiratory bronchiolitis. 05/30/2025 PET scan: 1. 7 (CC) x 4.6 (AP) x 4.1 (TV) cm metabolically-active necrotic mass within the left base of tongue/tonsillar fossa, consistent with biopsy-proven malignancy. 2. Metabolically-active necrotic bilateral level II; and left supraclavicular lymph node metastases. 3. 6.5 cm (CC) metabolically-active circumferential wall thickening within the ascending colon. Differential considerations include peristalsis and primary colon cancer. Further evaluation can be obtained with colonoscopy. - Follows with Oncology, Dr Brown and Radiation oncology, Dr Marino Haney Needs follow-up with oncology on discharge Hypokalemia Replace and monitor Chronic hypotension Likely secondary to poor intake IV fluids as needed Monitor blood pressure Constipation --KUB:Moderate retained stool Continue bowel regimen Tobacco use Prior cigarette smoker, reports quit but did smoke 1 cigarette this week Still chewing tobacco, reports 1 can a week Nicotine patch Encouraged cessation DVT Px: SCDs for now given h/o oropharyngeal bleeding CODE STATUS DNI DNR Admission and Anticipated Discharge Date Admission Date: August 24, 2025 Subjective Patient is seen and examined at bedside History difficult to obtain due to significant hoarseness States having headache this morning which is slowly improving Hallucinations seem to have resolved Had bowel movement per RN Noncompliant with strict n.p.o. Admits to have some cough but denies any chest pain Review of Systems Review of Systems: All systems reviewed & are unremarkable except as noted in Subjective Physical Exam Physical Exam: Physical Exam: Vitals signs as noted above General Appearance: Thin, frail, chronic ill appearing, disheveled afebrile moderately built and nourished, no apparent distress Head: normocephalic, Atraumatic,+ poor dentition,+ left edematous tongue Neck: Left neck swelling/Mass Eyes: normal inspection, EOMI Neck: supple, Trachea midline Respiratory/Chest: Decreased breath sounds, CTA, No accessory muscle use Cardiovascular: S1, S2, No murmur Abdomen/GI:Soft, Non tender, Bowel sounds present, +PEG Extremities/Musculoskeletal:normal inspection, no edema Neurologic/Psych:AAOX3, grossly no focal neurological deficits,+ chronic hoarse ness Skin: normal color, warm Results & Data Results & Data Vital Signs (Past 12 Hours) Vital Signs Temp Pulse Pulse Pulse Resp BP BP 08/25/25 11:26 77 18 91/54 L 08/25/25 07:59 79 08/25/25 07:27 37.1 C 79 18 100/61 08/25/25 03:45 36.5 C 79 18 94/57 L Pulse Ox O2 Del Method 08/25/25 11:26 97 Room Air 08/25/25 07:59 08/25/25 07:27 95 Room Air 08/25/25 03:45 96 Room Air Laboratory Results Short CBC 08/25/25 Range/Units 07:04 WBC 16.63 H (4.8-10.8) K/ul Hgb 8.4 L (14.0-18.0) g/dl Hct 26.5 L (42.0-52.0) % Plt Count 495 H (130-400) K/uL BMP 08/25/25 07:04 Sodium 136 Potassium 3.4 L Chloride 96 L Carbon Dioxide 35 H BUN 16 Creatinine 0.40 L Glucose 100 H Calcium 9.0 Liver Function 08/25/25 Range/Units 07:04 Total Bilirubin 0.3 (0.2-1.0) mg/dl AST 11 L (13-39) U/L ALT 10 (7-52) U/L Alkaline Phosphatase 61 (34-104) U/L Albumin 2.7 L (3.4-5.0) gm/dl
[2025-08-25] MEDS: POTASSIUM CHLORIDE / WTR 10 MEQ/100 ML PLCT IV SCH (14:18)
[2025-08-25] MEDS ORDERED: Nursing to Pharmacy Communication SCH (14:30)
[2025-08-25] MEDS: PIPERACILLIN/TAZOBACTAM 4.5 GM/100 ML BAG IV SCH (18:33)
[2025-08-25] MEDS: AZITHROMYCIN 500 MG/255 ML BAG IV SCH (18:33)
[2025-08-26 07:04] LABS: Hematocrit (blood only) 27.3 % (42.0-52.0); Hemoglobin 8.5 g/dl (14.0-18.0); Mean Corpuscular Hemoglobin 27.3 pg (25.0-34.0); Mean Corpuscular Volume 87.8 fL (80.0-100.0); Platelet Count 491 K/uL (130-400); RDW Standard Deviation 44.0 fL (36.4-46.3); Red Blood Count 3.11 M/uL (4.70-6.10); White Blood Count 14.57 K/ul (4.8-10.8)
[2025-08-26 07:40] LABS: Anion Gap 5.0 (3-11); Blood Urea Nitrogen 10.0 mg/dl (6-23); Calcium 8.4 mg/dl (8.6-10.3); Carbon Dioxide 31.0 mmol/L (21-32); Chloride 99.0 mmol/L (98-107); Creatinine Clr Calc Pharmacy 148.9 ml/min; Glucose 98.0 mg/dl (70-99(Fasting)); Magnesium 1.8 mg/dl (1.7-2.4); Potassium 3.7 mmol/L (3.5-5.1); Sodium 135.0 mmol/L (136-145)
[2025-08-26] MEDS ORDERED: ALBUMIN 25% 12.5 GM/50 ML VIAL IV ONE (16:30)
--- NOTE | 2025-08-26 16:33 | Hospitalist Progress Note ---
Date of Service August 26, 2025 Assessment & Plan (1) AMS (altered mental status): (2) Malnutrition: (3) Gastrostomy tube in place: (4) Tongue cancer: Plan: Patient is 60 year old male with PMH oropharyngeal squamous cell carcinoma, h/o oropharyngeal bleeding in 05/2025, ongoing dysphagia and hoarseness, protein calorie malnutrition, has G tube in place and on tube feeds presented to ER with with c/o AMS with hallucinations last night. Currently pt not experiencing hallucinations, is alert, oriented to person, place, season and year. Altered mental status likely acute metabolic encephalopathy Hallucinations Dehydration --CT Head:No acute intracranial findings. No change in appearance of the brain. Mental status seems to be back to baseline Cautious use of narcotics IV fluids as needed Monitor Case management to help with discharge planning Multiple lung abscesses--POA Likely due to aspiration/noncompliance with strict n.p.o. --CT Chest:Two subpleural right upper lobe irregular opacities measuring up to 6.2 x 3.2 cm. These each contain a rim-enhancing pocket of gas and fluid which measure up to 2.9 cm suggestive of small abscesses. These findings favor an infectious process such as necrotizing pneumonia, particularly given additional airspace opacities within the right upper lobe. Although less likely, a neoplastic process cannot be completely excluded. Therefore, a short-term follow-up chest CT in one month to ensure resolution is recommended. Prominent right hilar lymph node. This is likely reactive but should be assessed on follow-up CT. -- Normal procalcitonin --Blood cultures: Negative to date --Sputum cultures: Light normal angy Continue Zosyn, azithromycin Will need prolonged course of antibiotics Appreciate pulmonology input Strict n.p.o., aspiration precautions Saturating well on room air Oral hygiene, suctioning as needed Will need PICC line placement as able Oropharyngeal squamous cell carcinoma H/O oropharyngeal bleeding Severe protein calorie malnutrition --Strict n.p.o. Very high risk for aspiration Continue tube feeds with water flushes Dietitian consulted 08/16/25 Outpatient Nutrition note: Nutren 2.0 administered by gravity bag five times a day (1,250 mL/day) -Each carton provides 500 kcals, 21 g protein, 173 mL water Water Flushes: 90 mL before and after each feed (900 mL). 120 mL water flushes QID (480 mL) 1 serving (4 g total weight, 3 g dietary fiber, 5 calories) of nutrisource fiber in with every feed. Place Traveling Nurse consult here Patient currently on morphine tablets. Will switch oral solution at this time given patient's dysphagia and will likely need discharged on solution. Continue buprenorphine patch. IV Tylenol prn 08/23/25 first dose of carboplatin. Started radiation this week. Following with med oncology, Dr Brown and radiation oncology, Dr Marino Haney CBC, CMP in am Per Outpatient chart review: 05/17/2025 CT chest: There is no evidence of metastatic disease. Small ground-glass centrilobular nodules throughout the lung elliott may be secondary to respiratory bronchiolitis. 05/30/2025 PET scan: 1. 7 (CC) x 4.6 (AP) x 4.1 (TV) cm metabolically-active necrotic mass within the left base of tongue/tonsillar fossa, consistent with biopsy-proven malignancy. 2. Metabolically-active necrotic bilateral level II; and left supraclavicular lymph node metastases. 3. 6.5 cm (CC) metabolically-active circumferential wall thickening within the ascending colon. Differential considerations include peristalsis and primary colon cancer. Further evaluation can be obtained with colonoscopy. - Follows with Oncology, Dr Brown and Radiation oncology, Dr Marino Haney Needs follow-up with oncology on discharge Hypokalemia Replace and monitor Chronic hypotension Likely secondary to poor intake IV fluids as needed Monitor blood pressure Trial off IV albumin today Constipation --KUB:Moderate retained stool Continue bowel regimen Tobacco use Prior cigarette smoker, reports quit but did smoke 1 cigarette this week Still chewing tobacco, reports 1 can a week Nicotine patch Encouraged cessation DVT Px: SCDs for now given h/o oropharyngeal bleeding CODE STATUS DNI DNR Disposition PT OT prior to discharge Admission and Anticipated Discharge Date Admission Date: August 24, 2025 Subjective Patient is seen and examined at bedside History difficult to obtain due to significant hoarseness Discussed in detail with patient's family at bedside Counseled on strict n.p.o. Reports transient hemoptysis with cough Saturating well on room air Review of Systems Review of Systems: All systems reviewed & are unremarkable except as noted in Subjective Physical Exam Physical Exam: Physical Exam: Vitals signs as noted above General Appearance: Thin, frail, chronic ill appearing, disheveled afebrile moderately built and nourished, no apparent distress Head: normocephalic, Atraumatic,+ poor dentition,+ left edematous tongue Neck: Left neck swelling/Mass Eyes: normal inspection, EOMI Neck: supple, Trachea midline Respiratory/Chest: Decreased breath sounds, CTA, No accessory muscle use Cardiovascular: S1, S2, No murmur Abdomen/GI:Soft, Non tender, Bowel sounds present, +PEG Extremities/Musculoskeletal:normal inspection, no edema Neurologic/Psych:AAOX3, grossly no focal neurological deficits,+ chronic hoarseness Skin: normal color, warm Results & Data Results & Data Vital Signs (Past 12 Hours) Vital Signs Temp Pulse Pulse Resp BP Pulse Ox O2 Del Method 08/26/25 14:37 77 08/26/25 12:25 36.9 C 51 L 16 92/45 L 96 Room Air 08/26/25 07:50 36.7 C 73 16 97/61 L 98 Room Air 08/26/25 07:22 79 Laboratory Results Short CBC 08/26/25 Range/Units 06:06 WBC 14.57 H (4.8-10.8) K/ul Hgb 8.5 L (14.0-18.0) g/dl Hct 27.3 L (42.0-52.0) % Plt Count 491 H (130-400) K/uL BMP 08/26/25 06:06 Sodium 135 L Potassium 3.7 Chloride 99 Carbon Dioxide 31 BUN 10 Creatinine 0.42 L Glucose 98 Calcium 8.4 L (2) Malnutrition Malnutrition type: unspecified type Qualified Code(s): E46 - Unspecified protein-calorie malnutrition
[2025-08-26] MEDS ORDERED: Nursing to Pharmacy Communication SCH (18:15)
[2025-08-26] MEDS: ALBUMIN 25% 12.5 GM/50 ML VIAL IV ONE (19:48)
[2025-08-27 05:56] LABS: Hematocrit (blood only) 25.1 % (42.0-52.0); Hemoglobin 8.2 g/dl (14.0-18.0); Mean Corpuscular Hemoglobin 28.0 pg (25.0-34.0); Mean Corpuscular Volume 85.7 fL (80.0-100.0); Platelet Count 425 K/uL (130-400); RDW Standard Deviation 43.0 fL (36.4-46.3); Red Blood Count 2.93 M/uL (4.70-6.10); White Blood Count 15.04 K/ul (4.8-10.8)
[2025-08-27 06:59] LABS: Anion Gap 7.0 (3-11); Blood Urea Nitrogen 10.0 mg/dl (6-23); Calcium 8.4 mg/dl (8.6-10.3); Carbon Dioxide 29.0 mmol/L (21-32); Chloride 97.0 mmol/L (98-107); Creatinine Clr Calc Pharmacy 179.9 ml/min; Glucose 108.0 mg/dl (70-99(Fasting)); Magnesium 1.8 mg/dl (1.7-2.4); Potassium 3.4 mmol/L (3.5-5.1); Sodium 133.0 mmol/L (136-145)
[2025-08-27] MEDS: POTASSIUM CHLORIDE 20 MEQ/15 ML UDC PEG ONE (10:18)
--- NOTE | 2025-08-27 12:14 | Gastrointestinal Consultation ---
Date of Consultation August 27, 2025 Assessment & Plan (1) Gastrostomy tube in place: Patient had his peg tube dislodged during therapy today. Dr. Romano was able to put the old tube back into place to prevent closure of his tract. We confirmed the placement by visualizing feeding material through peg tube. - do not use peg tube at this time. - nursing has been asked to tape up the peg site to prevent tube from falling out again. - Dr. Roamno will plan to put a new peg tube in later this afternoon on rounds. Supervising Physician Co-Signing Physician Notes I saw and examined this patient with our nurse practitioner and agree with her assessment and plan. Old PEG tube maintained track patency. This was replaced with a new 18 [place] PEG tube. Position was confirmed by air insufflation and auscultation. Can resume using the feeding tube. Call if any further issues. History of Present Illness Reason for Consultation: G tube dislodged Requesting Physician: Tomi Jones MD Attending Physician: Tomi Jones MD History of Present Illness Patient is 60 year old male with a past medical history of oropharyngeal squamous cell carcinoma, h/o oropharyngeal bleeding in 05/2025, ongoing dysphagia and hoarseness, protein calorie malnutrition, with history of G tube on tube feeds who presented to ED with with complaints of AMS with hallucinations - he reportedly has not had further issues since admission. GI was asked to see as his G tube became dislodged while he was working with therapist today. patient does not offer other GI concerns at this time. The remainder of the GI ROS were unremarkable. Allergies Allergy/AdvReac Type Severity Reaction Status Date / Time No Known Drug Allergies Allergy Unknown Verified 08/24/25 18:11 Home Medications Medication Instructions Recorded Confirmed Type acetaminophen 325 mg tablet 325 mg PO QID PRN Pain 06/12/25 08/24/25 History (Tylenol) buprenorphine 5 mcg/hour weekly 1 patch transdermal Q7D 07/31/25 08/24/25 History transdermal patch (Butrans) ibuprofen 200 mg tablet (Advil) 200 mg PO Q6H PRN Pain 07/31/25 08/24/25 History guar gum (Nutrisource Fiber oral 4 g feeding tube UD 08/24/25 08/24/25 History powder) lactulose 10 gram/15 mL oral 15 ml PO TID 08/24/25 08/24/25 History solution morphine 15 mg immediate release 15 mg PO Q6H PRN Severe Pain 08/24/25 08/24/25 History tablet (Scale Score 7-10) nutritional supplements 250 ea feeding tube UD 08/24/25 08/24/25 History ondansetron 8 mg disintegrating 8 mg PO Q8H PRN Nausea 08/24/25 08/24/25 History tablet prochlorperazine maleate 10 mg 10 mg PO Q6H PRN Nausea 08/24/25 08/24/25 History tablet water 1 ea 08/24/25 History Patient History Medical History Gastrostomy tube in place Family History Mother Stomach cancer, Onset Age: 78 chemo Father Lung cancer, Onset Age: 70 Social History Smoking Status: Heavy tobacco smoker Tobacco Type: Smokeless Tobacco (Dip or Chew) Age Started Using Tobacco: 10; Age Quit Using Tobacco: 59; packs per day: 2; Second Hand Exposure: Yes; Do You Dip or Chew Tobacco: Yes (history of); Hx Alcohol Use: No Hx Substance Use: No Preferred Language: Mohawk Communication Ability: Effective Hand Heel Seat Fitter Required: No Beliefs That Will Affect Care: None marital status: Current Living Situation: Spouse Current Living Situation Comment: home with current occupational status: unemployed 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 Cardiovascular: RRR Gastrointestinal (Abdomen): former peg site noted. soft. nontender. normal bowel sounds. Dr. Romano was able to replace old peg tube in prior peg site. Results & Data Vital Signs (Past 12 Hours) Vital Signs Temp Pulse Pulse Resp BP Pulse Ox O2 Del Method 08/27/25 11:04 97.7 F 78 18 91/58 L 98 Room Air 08/27/25 07:54 97.7 F 80 18 94/49 L 96 Room Air 08/27/25 07:36 76 08/27/25 04:00 98.2 F 88 18 105/65 98 Room Air Coding Level of Care Code 16796 IN/OBS CONSULT LVL 4,60M Diagnoses Gastrostomy tube in place Z93.1
[2025-08-27 12:55] LABS: Appearance Urine Clear (Clear); Bacteria Urine Automated None Seen (None Seen); Cast Urine Automated 0-2 /lpf (0-2); Epithelial Cell Urine Auto 0-2 /hpf (0-2); Glucose Urine UA Negative (Negative); RBC Urine Automated 0-2 /hpf (0-2)
--- NOTE | 2025-08-27 15:54 | Hospitalist Progress Note ---
Date of Service August 27, 2025 Assessment & Plan (1) AMS (altered mental status): (2) Malnutrition: (3) Gastrostomy tube in place: (4) Tongue cancer: Plan: Patient is 60 year old male with PMH oropharyngeal squamous cell carcinoma, h/o oropharyngeal bleeding in 05/2025, ongoing dysphagia and hoarseness, protein calorie malnutrition, has G tube in place and on tube feeds presented to ER with with c/o AMS with hallucinations last night. Currently pt not experiencing hallucinations, is alert, oriented to person, place, season and year. Altered mental status likely acute metabolic encephalopathy Hallucinations Dehydration --CT Head:No acute intracranial findings. No change in appearance of the brain. Mental status back to baseline Cautious use of narcotics IV fluids as needed Case management to help with discharge planning Continue to monitor Multiple lung abscesses--POA Likely due to aspiration/noncompliance with strict n.p.o. --CT Chest:Two subpleural right upper lobe irregular opacities measuring up to 6.2 x 3.2 cm. These each contain a rim-enhancing pocket of gas and fluid which measure up to 2.9 cm suggestive of small abscesses. These findings favor an infectious process such as necrotizing pneumonia, particularly given additional airspace opacities within the right upper lobe. Although less likely, a neoplastic process cannot be completely excluded. Therefore, a short-term follow-up chest CT in one month to ensure resolution is recommended. Prominent right hilar lymph node. This is likely reactive but should be assessed on follow-up CT. -- Normal procalcitonin --Blood cultures: Negative to date --Sputum cultures: Growing Alcaligenes faecalis Continue Zosyn, azithromycin Will need prolonged course of antibiotics Appreciate pulmonology input Strict n.p.o., aspiration precautions Saturating well on room air Oral hygiene, suctioning as needed Consulted infectious disease for further recommendations May need to change Zosyn to meropenem if no clinical improvement Will await for recommendations from ID Oropharyngeal squamous cell carcinoma H/O oropharyngeal bleeding Severe protein calorie malnutrition --Strict n.p.o. Very high risk for aspiration Continue tube feeds with water flushes Dietitian consulted 08/16/25 Outpatient Nutrition note: Nutren 2.0 administered by gravity bag five times a day (1,250 mL/day) -Each carton provides 500 kcals, 21 g protein, 173 mL water Water Flushes: 90 mL before and after each feed (900 mL). 120 mL water flushes QID (480 mL) 1 serving (4 g total weight, 3 g dietary fiber, 5 calories) of nutrisource fiber in with every feed. Place Ict Managers consult here Patient currently on morphine tablets. Will switch oral solution at this time given patient's dysphagia and will likely need discharged on solution. Continue buprenorphine patch. IV Tylenol prn 08/23/25 first dose of carboplatin. Started radiation this week. Following with med oncology, Dr Brown and radiation oncology, Dr Marino Haney CBC, CMP in am Per Outpatient chart review: 05/17/2025 CT chest: There is no evidence of metastatic disease. Small ground-glass centrilobular nodules throughout the lung elliott may be secondary to respiratory bronchiolitis. 05/30/2025 PET scan: 1. 7 (CC) x 4.6 (AP) x 4.1 (TV) cm metabolically-active necrotic mass within the left base of tongue/tonsillar fossa, consistent with biopsy-proven malignancy. 2. Metabolically-active necrotic bilateral level II; and left supraclavicular lymph node metastases. 3. 6.5 cm (CC) metabolically-active circumferential wall thickening within the ascending colon. Differential considerations include peristalsis and primary colon cancer. Further evaluation can be obtained with colonoscopy. - Follows with Oncology, Dr Brown and Radiation oncology, Dr Marino Haney Needs follow-up with oncology on discharge PEG tube dislodged Appreciate GI input Plan for replacing PEG tube Hypokalemia Replace and monitor Chronic hypotension Likely secondary to poor intake IV fluids as needed Monitor blood pressure Constipation --KUB:Moderate retained stool Continue bowel regimen Tobacco use Prior cigarette smoker, reports quit but did smoke 1 cigarette this week Still chewing tobacco, reports 1 can a week Nicotine patch Encouraged cessation DVT Px: SCDs for now given h/o oropharyngeal bleeding CODE STATUS DNI DNR Disposition Plan to discharge home with home health as able Admission and Anticipated Discharge Date Admission Date: August 24, 2025 Subjective Patient is seen and examined at bedside History difficult to obtain due to significant hoarseness Headache, hemoptysis resolved Was noted to have PEG tube dislodged by RN No new complaints Discussed with radiation oncology Review of Systems Review of Systems: All systems reviewed & are unremarkable except as noted in Subjective Physical Exam Physical Exam: Physical Exam: Vitals signs as noted above General Appearance: Thin, frail, chronic ill appearing, disheveled afebrile moderately built and nourished, no apparent distress Head: normocephalic, Atraumatic,+ poor dentition,+ left edematous tongue Neck: Left neck swelling/Mass Eyes: normal inspection, EOMI Neck: supple, Trachea midline Respiratory/Chest: Decreased breath sounds, CTA, No accessory muscle use Cardiovascular: S1, S2, No murmur Abdomen/GI:Soft, Non tender, Bowel sounds present, +PEG Extremities/Musculoskeletal:normal inspection, no edema Neurologic/Psych:AAOX3, grossly no focal neurological deficits,+ chronic hoarseness Skin: normal color, warm Results & Data Results & Data Vital Signs (Past 12 Hours) Vital Signs Temp Pulse Pulse Resp BP BP Pulse Ox 08/27/25 15:33 37.2 C 79 18 91/49 L 97 08/27/25 14:15 79 08/27/25 11:04 36.5 C 78 18 91/58 L 98 08/27/25 07:54 36.5 C 80 18 94/49 L 96 08/27/25 07:36 76 08/27/25 04:00 36.8 C 88 18 105/65 98 O2 Del Method 08/27/25 15:33 Room Air 08/27/25 14:15 08/27/25 11:04 Room Air 08/27/25 07:54 Room Air 08/27/25 07:36 08/27/25 04:00 Room Air Laboratory Results Short CBC 08/27/25 Range/Units 05:32 WBC 15.04 H (4.8-10.8) K/ul Hgb 8.2 L (14.0-18.0) g/dl Hct 25.1 L (42.0-52.0) % Plt Count 425 H (130-400) K/uL BMP 08/27/25 05:32 Sodium 133 L Potassium 3.4 L Chloride 97 L Carbon Dioxide 29 BUN 10 Creatinine 0.35 L Glucose 108 H Calcium 8.4 L Urine 08/27/25 Range/Units 12:20 Urine Color Yellow Urine Appearance Clear (Clear) Urine pH 8.5 H (4.5-7.5) Ur Specific [place] 1.015 (1.000-1.030) Urine Protein Trace H (Negative) Urine Glucose (UA) Negative (Negative) (2) Malnutrition Malnutrition type: unspecified type Qualified Code(s): E46 - Unspecified protein-calorie malnutrition
[2025-08-27] MEDS: D5W AND 1/2NSS + 20MEQ KCL 20 MEQ/1,000 ML BAG IV ONE (17:47)
[2025-08-28 07:00] LABS: Hematocrit (blood only) 28.8 % (42.0-52.0); Hemoglobin 9.1 g/dl (14.0-18.0); Immature Granulocytes # (auto) 0.09 K/uL (0.01-0.20); Immature Granulocytes % (auto) 0.6 %; Mean Corpuscular Hemoglobin 27.9 pg (25.0-34.0); Mean Corpuscular Volume 88.3 fL (80.0-100.0); Platelet Count 488 K/uL (130-400); RDW Standard Deviation 45.1 fL (36.4-46.3); Red Blood Count 3.26 M/uL (4.70-6.10); White Blood Count 14.11 K/ul (4.8-10.8)
[2025-08-28 07:23] LABS: Anion Gap 6.0 (3-11); Blood Urea Nitrogen 8.0 mg/dl (6-23); Calcium 8.7 mg/dl (8.6-10.3); Carbon Dioxide 32.0 mmol/L (21-32); Chloride 97.0 mmol/L (98-107); Creatinine Clr Calc Pharmacy 172.0 ml/min; Glucose 108.0 mg/dl (70-99(Fasting)); Potassium 3.6 mmol/L (3.5-5.1); Sodium 135.0 mmol/L (136-145)
--- NOTE | 2025-08-28 08:44 | Palliative Care Consultation ---
Date of Consultation August 28, 2025 Assessment & Plan (1) Weakness generalized: (2) Weight loss: (3) Counseling regarding goals of care: Met with pt at bedside, discussed GOC/ACP from 12:30 - 13:00. No visitors present, attempted to add pt's to discussion by phone unsuccessfully. Pt shared that he has recently begun radiation treatments for cancer in his head and neck and he is hopeful that this will shrink his cancer enough that he may eventually be able to eat by mouth again. He shared that his oncology team has told him that he cannot take any solid or liquid by mouth and all of his intake currently comes from his PEG tube. He shared that he is frustrated with difficulty speaking, and inability to eat by mouth, but aside from an occasional headache, he does not have any other symptoms. He shared that he lives independently with his of 25 years who is disabled and does not drive. 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 Pt shared that he would not wish to be kept alive on machines and reaffirms DNR/DNI status. At this point he is hopeful that cancer directed treatment will improve his quality of life so he can return to living independently with his , have an easier time communicating and be able to eat solid food by mouth. (4) Palliative care by specialist: Met with pt at bedside, no visitors present. Introduced Palliative Medicine and explained our role in advanced care planning, symptom management and navigation through the progression of life limiting disease. Patient was receptive to palliative services for goals of care discussions. Reviewed we are different from hospice, a home health nurse visiting service. Plan We will sign off on this patient as goals of care are clearly established for DNR/DNI but continue all other life prolonging therapies and cancer directed treatments. Thank you for including Palliative Care in the management of this patient. Please call with any questions or concerns regarding this consultation. History of Present Illness Reason for Consultation: goals of care. Requesting Physician: Tomi Jones MD Attending Physician: Tomi Jones MD History of Present Illness Mr Benítez is 60 year old male with PMH oropharyngeal squamous cell carcinoma, h/o oropharyngeal bleeding in 05/2025, ongoing dysphagia and hoarseness, protein calorie malnutrition, has G tube in place and on tube feeds presented to ER c/o AMS with hallucinations on 08/23/25. He was admitted for medical management with question of aspiration PNA. He was found to have displaced PEG tube, which has since been replaced and pt is tolerating bolus TF well. Allergies Allergy/AdvReac Type Severity Reaction Status Date / Time No Known Drug Allergies Allergy Unknown Verified 08/24/25 18:11 Home Medications Medication Instructions Recorded Confirmed Type acetaminophen 325 mg tablet 325 mg PO QID PRN Pain 06/12/25 08/24/25 History (Tylenol) buprenorphine 5 mcg/hour weekly 1 patch transdermal Q7D 07/31/25 08/24/25 H istory transdermal patch (Butrans) ibuprofen 200 mg tablet (Advil) 200 mg PO Q6H PRN Pain 07/31/25 08/24/25 History guar gum (Nutrisource Fiber oral 4 g feeding tube UD 08/24/25 08/24/25 History powder) lactulose 10 gram/15 mL oral 15 ml PO TID 08/24/25 08/24/25 History solution morphine 15 mg immediate release 15 mg PO Q6H PRN Severe Pain 08/24/25 08/24/25 History tablet (Scale Score 7-10) nutritional supplements 250 ea feeding tube UD 08/24/25 08/24/25 History ondansetron 8 mg disintegrating 8 mg PO Q8H PRN Nausea 08/24/25 08/24/25 History tablet prochlorperazine maleate 10 mg 10 mg PO Q6H PRN Nausea 08/24/25 08/24/25 History tablet water 1 ea 08/24/25 History Patient History Medical History Gastrostomy tube in place Family History Mother Stomach cancer, Onset Age: 78 chemo Father Lung cancer, Onset Age: 70 Social History Smoking Status: Heavy tobacco smoker Tobacco Type: Smokeless Tobacco (Dip or Chew) Age Started Using Tobacco: 10; Age Quit Using Tobacco: 59; packs per day: 2; Second Hand Exposure: Yes; Do You Dip or Chew Tobacco: Yes (history of); Hx Alcohol Use: No Hx Substance Use: No Preferred Language: Hebrew Communication Ability: Effective Moveman Required: No Beliefs That Will Affect Care: None marital status: Current Living Situation: Spouse Current Living Situation Comment: home with current occupational status: unemployed 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 [employer]; Other Information That Helps Us Care for You: No Feels Safe at Home: Yes Safety Concerns: Feels Safe At This Time Childhood Exposure to Second-Hand Smoke: Yes Assistive Devices: Walker Review of Systems Review of Systems: All systems reviewed & are unremarkable except as noted in HPI & below Physical Exam Constitutional: + ill appearing, + cachectic, + frail ap pearing, cooperative and comfortable Eyes: PERRL, conjunctivae normal, anicteric sclerae Neck: trachea midline, no thyromegaly Respiratory: normal respiratory effort, lungs clear to auscultation Cardiovascular: RRR, no murmur, no edema Gastrointestinal (Abdomen): normal bowel sounds, soft, nontender, no hepatosplenomegaly PEG in place with active bolus feeds running. Musculoskeletal: no cyanosis or clubbing, extremities motor strength 5/5 Skin: no rashes, warm and dry Neurologic: moves all extremities and awake; no focal motor deficits Speech / Cognition: + abnormal speech slurred speech per baseline, at times difficult to understand Psychiatric: A+Ox3, euthymic affect Speech: + pressured speech Results & Data Vital Signs (Past 12 Hours) Vital Signs Temp Pulse Pulse Resp BP BP Pulse Ox 08/28/25 07:45 36.9 C 82 16 95/58 L 97 08/28/25 07:32 77 08/28/25 04:00 36.9 C 82 18 95/54 L 97 08/27/25 23:13 36.8 C 82 18 99/57 L 95 08/27/25 21:43 85 O2 Del Method 08/28/25 07:45 Room Air 08/28/25 07:32 08/28/25 04:00 Room Air 08/27/25 23:13 Room Air 08/27/25 21:43 Laboratory Results Abnormal lab results 08/27/25 08/28/25 Range/Units 12:20 05:28 WBC 14.11 H (4.8-10.8) K/ul RBC 3.26 L (4.70-6.10) M/uL Hgb 9.1 L (14.0-18.0) g/dl Hct 28.8 L (42.0-52.0) % MCHC 31.6 L (32.0-36.0) g/dL Plt Count 488 H (130-400) K/uL Neut # (Auto) 11.81 H (1.40-6.50) K/uL Lymph # (Auto) 1.10 L (1.20-3.40) K/uL Martin # (Auto) 0.85 H (0.11-0.59) K/uL Sodium 135 L (136-145) mmol/L Chloride 97 L (98-107) mmol/L Creatinine 0.37 L (0.6-1.4) mg/dl BUN/Creatinine Ratio 21.6 H (10-20) Glucose 108 H (70-99(Fasting)) mg/dl Urine pH 8.5 H (4.5-7.5) Urine Protein Trace H (Negative) Urine Urobilinogen Positive H (Negative) Ur Leukocyte Esterase 1+ H (Negative) Urine WBC (Auto) 6-10 H (0-5) /hpf Diagnostic Findings Head CT 08/24/25 10:02 CT SCAN OF THE BRAIN WITHOUT IV CONTRAST CLINICAL HISTORY: Intermittent headaches. Visual hallucinations. COMPARISON STUDY: Head CT June 08, 2025. TECHNIQUE: Unenhanced axial CT scan of the brain was performed from the vertex to the skull base. A dose lowering technique was utilized adhering to the principles of ALARA. CT DOSE: 625.8 mGy.cm FINDINGS: Brain parenchyma: No acute intracranial hemorrhage, midline shift or mass effect is present. Hsu-white matter differentiation is preserved. There are no extra- axial fluid collections. There are no findings to suggest acute dural sinus thrombosis or acute territorial infarct. White matter hypodensities are similar to prior exam and favor small vessel disease. Ventricles, sulci, cisterns: There is no hydrocephalus. The basal cisterns are patent. Calvarium: Unremarkable. Sinuses and mastoids: The visualized paranasal sinuses are clear. The mastoid air cells are well pneumatized. Orbits: The bony orbits are grossly intact. IMPRESSION: No acute intracranial findings. No change in appearance of the brain. ACT 112: Negative or not required by law. Electronically signed by: Saul Segovia M.D. 08/24/2025 12:16 PM Chest X-Ray 10/31/25 10:07 XR chest 1V portable CLINICAL HISTORY: weakness COMPARISON STUDY: 06/08/2025 FINDINGS: There is an interval mass like density at the right lung apex. There is a faint nodular density lateral right midlung. No lobar consolidation or pleural effusion seen. No pneumothorax. IMPRESSION: Pulmonary masses/nodules on the right versus nodular pneumonia. Follow-up CT scan of the chest recommended. ACT 112: Negative or not required by law. Electronically signed by: Victor Manuel Vargas M.D. 08/24/2025 10:56 AM KUB X-Ray 08/24/25 14:17 KUB HISTORY: constipation COMPARISON STUDY: None FINDINGS: PEG tube is present. There is moderate retained stool. No bowel obstruction seen. No gross free air. IMPRESSION: Moderate retained stool. ACT 112: Negative or not required by law. The above report was generated using voice recognition software. It may contain grammatical, syntax or spelling errors. Electronically signed by: Victor Manuel Vargas M.D. 08/24/2025 3:[address] 08/24/25 15:00 CT SCAN OF THE CHEST WITH IV CONTRAST CLINICAL HISTORY: Weakness. Abnormal chest radiograph. Pneumonia versus malignancy. History of head and neck cancer. COMPARISON STUDY: Chest radiographs June 08, 2025 and August 24, 2025. TECHNIQUE: Following the IV administration of 90 cc of Optiray 320, CT scan of the thorax was performed from the thoracic inlet to the upper abdomen. Images are reviewed in the axial, sagittal, and coronal planes. IV contrast was administered without complication. A dose lowering technique was utilized adhering to the principles of ALARA. CT DOSE: 321.59 mGy.cm FINDINGS: Prominent left level 1 and 2 lymph nodes are partially imaged on this examination. There is a prominent right hilar lymph node on image [id number] measures 1.6 x 1.4 cm. Size of the heart is normal. There is no pericardial effusion. No pneumothorax or pleural effusion is present. Note is made of a 6.2 x 3.2 cm subpleural irregular right upper lobe opacity which corresponds to an abnormality on chest radiograph. This contains a rim-enhancing pocket of fluid and gas that measures 2.9 cm. There is a similar-appearing but smaller 2.8 x 2.7 cm right upper lobe subpleural opacity which contains a small pocket of fluid and gas which measures 1.2 cm. Additional mild alveolar opacities within the right upper lobe are present. There is associated interlobular septal thickening. Left lung is clear. Gastrostomy tube is incidentally noted. Visualized portions of the upper abdomen are unremarkable. IMPRESSION: 1. Two subpleural right upper lobe irregular opacities measuring up to 6.2 x 3.2 cm. These each contain a rim-enhancing pocket of gas and fluid which measure up to 2.9 cm suggestive of small abscesses. These findings favor an infectious process such as necrotizing pneumonia, particularly given additional airspace opacities within the right upper lobe. Although less likely, a neoplastic process cannot be completely excluded. Therefore, a short-term follow-up chest CT in one month to ensure resolution is recommended. 2. Prominent right hilar lymph node. This is likely reactive but should be assessed on follow-up CT. ACT 112: Negative or not required by law. Electronically signed by: Saul Segovia M.D. 08/24/2025 4:08 PM Medications Administered Current Inpatient Medications Bisacodyl (Bisacodyl 10 Mg Supp) 10 mg NM DAILY PRN PRN Reason: Constipation Stop: 09/24/25 08:06 Buprenorphine HCl (Buprenorphine 5 Mcg/Hr Tdsy) 1 patch TD Q7D MOHINI Stop: 09/23/25 18:14 Last Admin: 08/24/25 20:32 Dose: 1 patch Azithromycin (Zithromax) 500 mg in 255 mls @ 127.5 mls/hr IV Q24H MOHINI Stop: 08/30/25 14:59 Last Infusion: 08/27/25 18:39 Dose: Infused Piperacillin Sod/Tazobactam Sod (Zosyn) 4.5 gm in 100 mls @ 25 mls/hr IV Q8H MOHINI; Protocol Stop: 08/30/25 15:59 Last Infusion: 08/28/25 12:00 Dose: Infused Miscellaneous (Remove & Waste Butrans Patch 1 Ea Ea) 1 each N/A Q7D MOHINI Stop: 09/23/25 18:13 Last Admin: 08/24/25 20:36 Dose: Not Given Miscellaneous (Check Buprenorphine Patch) 1 each N/A QS MOHINI Stop: 09/23/25 18:02 Last Admin: 08/28/25 08:00 Dose: 1 each Miscellaneous (Remove Nicoderm Patch) 1 each N/A DAILY@0859 [facility] Stop: 09/24/25 08:58 Last Admin: 08/28/25 11:23 Dose: 1 each Morphine Sulfate (Morphine Sulfate 10 Mg/0.5 Ml Udp) 10 mg PO Q6H PRN PRN Reason: Severe Pain (Scale 7, 8, 9,10) Stop: 09/07/25 18:02 Nicotine (Nicotine 14 Mg/24 Hr Patch) 1 patch TD QAM [facility] Stop: 09/23/25 18:14 Last Admin: 08/27/25 08:52 Dose: Not Given Nutritional Formula (Nutren Liqd 2.0 1,000 Ml Bag) 250 ml PEG QID@0800,1200,1600,2000 [facility] Stop: 09/24/25 07:59 Last Admin: 08/28/25 08:00 Dose: 250 ml Ondansetron HCl (Ondansetron Inj 2 Mg/Ml 2 Ml Vial) 4 mg IV Q6H PRN PRN Reason: Nausea Stop: 09/23/25 18:02 Polyethylene Glycol (Polyethylene (Miralax) 17 Gm Pack) 17 gm PO DAILY [facility] Stop: 09/24/25 08:59 Last Admin: 08/28/25 11:24 Dose: Not Given Sterile Water (Tube Feeding Water Flush) 150 ml GT QID@0730,1130,1530,1930 [facility] Stop: 09/24/25 07:29 Last Admin: 08/28/25 11:30 Dose: 150 ml Sterile Water (Tube Feeding Water Flush) 150 ml GT QID@0830,1230,1630,2030 [facility] Stop: 09/24/25 08:29 Last Admin: 08/28/25 08:30 Dose: 150 ml PG Care Time/CCT Total # of Minutes Spent Total Time Spent with Patient: Total time spent is greater than 50% in coordination of care (as documented) at patient's floor/unit and/or counseling patient: Advanced Care Planning 50845 Advanced Care Planning 30 [place] [address] IN/OBS CONSULT LVL 4,60M Patient Type New Medical Decision Making Moderate Complexity Diagnoses Weakness generalized R53.1 Weight loss R63.4 Counseling regarding goals of care Z71.89 Palliative care by specialist Z51.5 Additional Codes Advanced Care Planning - 42694 Advanced Care Planning 30 Min: 92936 Advanced Care Planning 30 Min ([id number])
--- NOTE | 2025-08-28 14:11 | Hospitalist Progress Note ---
Date of Service August 28, 2025 Assessment & Plan (1) AMS (altered mental status): (2) Malnutrition: (3) Gastrostomy tube in place: (4) Tongue cancer: Plan: Patient is 60 year old male with PMH oropharyngeal squamous cell carcinoma, h/o oropharyngeal bleeding in 05/2025, ongoing dysphagia and hoarseness, protein calorie malnutrition, has G tube in place and on tube feeds presented to ER with with c/o AMS with hallucinations last night. Currently pt not experiencing hallucinations, is alert, oriented to person, place, season and year. Altered mental status likely acute metabolic encephalopathy Hallucinations Dehydration --CT Head:No acute intracranial findings. No change in appearance of the brain. Mental status back to baseline Cautious use of narcotics IV fluids as needed Case management to help with discharge planning Continue to monitor Plan to discharge home with home health as able Multiple lung abscesses--POA Likely due to aspiration/noncompliance with strict n.p.o. --CT Chest:Two subpleural right upper lobe irregular opacities measuring up to 6.2 x 3.2 cm. These each contain a rim-enhancing pocket of gas and fluid which measure up to 2.9 cm suggestive of small abscesses. These findings favor an infectious process such as necrotizing pneumonia, particularly given additional airspace opacities within the right upper lobe. Although less likely, a neoplastic process cannot be completely excluded. Therefore, a short-term follow-up chest CT in one month to ensure resolution is recommended. Prominent right hilar lymph node. This is likely reactive but should be assessed on follow-up CT. -- Normal procalcitonin --Blood cultures: Negative to date --Sputum cultures: Growing Alcaligenes faecalis Continue Zosyn, azithromycin Will likely need need prolonged course of antibiotics Appreciate pulmonology input Strict n.p.o., aspiration precautions Saturating well on room air Oral hygiene, suctioning as needed Consulted infectious disease for further recommendations--pending input Oropharyngeal squamous cell carcinoma H/O oropharyngeal bleeding Severe protein calorie malnutrition --Strict n.p.o. Very high risk for aspiration Continue tube feeds with water flushes Dietitian consulted 08/16/25 Outpatient Nutrition note: Nutren 2.0 administered by gravity bag five times a day (1,250 mL/day) -Each carton provides 500 kcals, 21 g protein, 173 mL water Water Flushes: 90 mL before and after each feed (900 mL). 120 mL water flushes QID (480 mL) 1 serving (4 g total weight, 3 g dietary fiber, 5 calories) of nutrisource fiber in with every feed. Place Stress Engineer consult here Patient currently on morphine tablets. Will switch oral solution at this time given patient's dysphagia and will likely need discharged on solution. Continue buprenorphine patch. IV Tylenol prn 08/23/25 first dose of carboplatin. Started radiation this week. Following with med oncology, Dr Brown and radiation oncology, Dr Marino Haney CBC, CMP in am Per Outpatient chart review: 05/17/2025 CT chest: There is no evidence of metastatic disease. Small ground-glass centrilobular nodules throughout the lung elliott may be secondary to respiratory bronchiolitis. 05/30/2025 PET scan: 1. 7 (CC) x 4.6 (AP) x 4.1 (TV) cm metabolically-active necrotic mass within the left base of tongue/tonsillar fossa, consistent with biopsy-proven malignancy. 2. Metabolically-active necrotic bilateral level II; and left supraclavicular lymph node metastases. 3. 6.5 cm (CC) metabolically-active circumferential wall thickening within the ascending colon. Differential considerations include peristalsis and primary colon cancer. Further evaluation can be obtained with colonoscopy. - Follows with Oncology, Dr Brown and Radiation oncology, Dr Marino Haney Needs follow-up with oncology on discharge PEG tube dislodged S/P replacement with new 18 Yemeni PEG tube. Appreciate GI input Tube feeds resumed Hypokalemia Replace and monitor Chronic hypotension Likely secondary to poor intake IV fluids as needed Monitor blood pressure Constipation --KUB:Moderate retained stool Continue bowel regimen Tobacco use Prior cigarette smoker, reports quit but did smoke 1 cigarette this week Still chewing tobacco, reports 1 can a week Nicotine patch Encouraged cessation DVT Px: SCDs for now given h/o oropharyngeal bleeding CODE STATUS DNI DNR Disposition Plan to discharge home with home health as able Admission and Anticipated Discharge Date Admission Date: August 24, 2025 Subjective Patient is seen and examined at bedside History difficult to obtain due to significant hoarseness/dysarthria Still has some cough with expectoration No other complaints today Infectious disease input pending Review of Systems Review of Systems: All systems reviewed & are unremarkable except as noted in Subjective Physical Exam Physical Exam: Physical Exam: Vitals signs as noted above General Appearance: Thin, frail, chronic ill appearing, disheveled afebrile moderately built and nourished, no apparent distress Head: normocephalic, Atraumatic,+ poor dentition,+ left edematous tongue Neck: Left neck swelling/Mass Eyes: normal inspection, EOMI Neck: supple, Trachea midline Respiratory/Chest: Decreased breath sounds, CTA, No accessory muscle use Cardiovascular: S1, S2, No murmur Abdomen/GI:Soft, Non tender, Bowel sounds present, +PEG Extremities/Musculoskeletal:normal inspection, no edema Neurologic/Psych:AAOX3, grossly no focal neurological deficits,+ chronic hoarseness Skin: normal color, warm Results & Data Results & Data Vital Signs (Past 12 Hours) Vital Signs Temp Pulse Pulse Resp BP BP Pulse Ox 08/28/25 10:16 37.1 C 76 16 98/57 L 95 08/28/25 07:45 36.9 C 82 16 95/58 L 97 08/28/25 07:32 77 08/28/25 04:00 36.9 C 82 18 95/54 L 97 O2 Del Method 08/28/25 10:16 Room Air 08/28/25 07:45 Room Air 08/28/25 07:32 08/28/25 04:00 Room Air Laboratory Results Short CBC 08/28/25 Range/Units 05:28 WBC 14.11 H (4.8-10.8) K/ul Hgb 9.1 L (14.0-18.0) g/dl Hct 28.8 L (42.0-52.0) % Plt Count 488 H (130-400) K/uL BMP 08/28/25 05:28 Sodium 135 L Potassium 3.6 Chloride 97 L Carbon Dioxide 32 BUN 8 Creatinine 0.37 L Glucose 108 H Calcium 8.7 (2) Malnutrition Malnutrition type: unspecified type Qualified Code(s): E46 - Unspecified protein-calorie malnutrition
--- NOTE | 2025-08-28 14:47 | Infectious Disease Consult ---
Date of Service August 28, 2025 Telehealth Information I performed this visit using a real-time telehealth connection between my location and the patients location ([facility]). After connecting through interactive tele-video, patient was identified by name and date of and/or wristband check.Patient (or authorized healthcare appeals representative) was informed that this was a telemedicine visit and it was being conducted confidentially over secure lines. My office door was closed and no one else was present in the room with me.Patient (or authorized healthcare appeals representative) provided consent to proceed with the visit, expressed an understanding of privacy and security of the telemedicine visit, and gave permission to have a hospital appeals representative in the room in order to assist with the visit and to conduct portions of the visit, as needed. I informed the patient (or authorized healthcare appeals representative) that I reviewed their record and presented the opportunity for them to ask any questions regarding the visit today. The patient agreed to participate. Assessment & Plan (1) Multiple lung abscesses: Plan: Chronic aspiration is a concern leading to the abscesses. The tracheal aspirate indicates colonization and possible infection with a MDR pathogen as well (patient at risk). Concomitant anaerobic infection cannot be ruled out, as well as malignancy. If no improvement with abx alone, bronch and biopsy should be considered. Plan 1. D/C azithromycin 2. Continue IV pip-tazo 4.5g IV q 8 He should have a PICC line placed and plan on at least a 4 week course of IV pip-tazo. While on pip-tazo, he should have weekly CBC and CMP checked. After 4 weeks of therapy, I would repeat CT chest to help determine final duration (he could require up to 8 weeks of therapy total). History of Present Illness History of Present Illness Mr. Benítez has a h/o OP squamous cell CA, S/P resection. His post-op course has been complicated by recurrent aspiration and he is S/P G-tube placement and trach. He was brought to the ED by his on 08/24/25 at [facility] due to increasing confusion and weakness. He was found to be dehydrated and malnourished on admission. His WBC was also 16K and chest imaging suggested a pneumonia. CT imaging clarified that he had what appears to be 2 pulmonary abscesses as well. He was started on CTX and azithromycin. Pulmonary was consulted and obtained a tracheal aspirate which grew Alcaligenes faecalis. Once the abscesses were identified, he was broadened to pip-tazo. Today he reports feeling better. He still feels weak and cannot ambulate without assistance. He denies any chest pain or significant SOB. He has a G tube in place-- No N/V or diarrhea. No rash or joint pains. Allergies Allergy/AdvReac Type Severity Reaction Status Date / Time No Known Drug Allergies Allergy Unknown Verified 08/24/25 18:11 Home Medications Medication Instructions Recorded Confirmed Type acetaminophen 325 mg tablet 325 mg PO QID PRN Pain 06/12/25 08/24/25 History (Tylenol) buprenorphine 5 mcg/hour weekly 1 patch transdermal Q7D 07/31/25 08/24/25 History transdermal patch (Butrans) ibuprofen 200 mg tablet (Advil) 200 mg PO Q6H PRN Pain 07/31/25 08/24/25 History guar gum (Nutrisource Fiber oral 4 g feeding tube UD 08/24/25 08/24/25 History powder) lactulose 10 gram/15 mL oral 15 ml PO TID 08/24/25 08/24/25 History solution morphine 15 mg immediate release 15 mg PO Q6H PRN Severe Pain 08/24/25 08/24/25 History tablet (Scale Score 7-10) nutritional supplements 250 ea feeding tube UD 08/24/25 08/24/25 History ondansetron 8 mg disintegrating 8 mg PO Q8H PRN Nausea 08/24/25 08/24/25 History tablet prochlorperazine maleate 10 mg 10 mg PO Q6H PRN Nausea 08/24/25 08/24/25 History tablet water 1 ea 08/24/25 History Patient History Medical History Gastrostomy tube in place Family History Mother Stomach cancer, Onset Age: 78 chemo Father Lung cancer, Onset Age: 70 Social History Smoking Status: Heavy tobacco smoker Tobacco Type: Smokeless Tobacco (Dip or Chew) Age Started Using Tobacco: 10; Age Quit Using Tobacco: 59; packs per day: 2; Second Hand Exposure: Yes; Do You Dip or Chew Tobacco: Yes (history of); Hx Alcohol Use: No Hx Substance Use: No Preferred Language: Kinyarwanda Communication Ability: Effective Variety Saw Operator Required: No Beliefs That Will Affect Care: None marital status: Current Living Situation: Spouse Current Living Situation Comment: home with current occupational status: unemployed 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 [employer]; Other Information That Helps Us Care for You: No Feels Safe at Home: Yes Safety Concerns: Feels Safe At This Time Childhood Exposure to Second-Hand Smoke: Yes Assistive Devices: Walker Review of Systems Gen- Weak HEENT- No pain, surgical changes Resp- No SOB, + cough CV- No chest pain GI- No N/A or diarrhea, + G tube - No dysuria MSK- No joint pains, + muscle wasting Neuro- No focal deficits Derm- No rash Physical Exam Gen- Chronically ill-appearing HEENT- Surgical changes Resp- Normal respirations on RA Abd- G tube in place MSK- Muscle wasting Ext- No edema Skin- No rash Neuro- Alert and oriented Results & Data Vital Signs (Past 12 Hours) Vital Signs Temp Pulse Pulse Resp BP BP Pulse Ox 08/28/25 10:16 37.1 C 76 16 98/57 L 95 08/28/25 07:45 36.9 C 82 16 95/58 L 97 08/28/25 07:32 77 08/28/25 04:00 36.9 C 82 18 95/54 L 97 O2 Del Method 08/28/25 10:16 Room Air 08/28/25 07:45 Room Air 08/28/25 07:32 08/28/25 04:00 Room Air Laboratory Results WBC 16 -> 15 -> 14 Hgb 9.1 Platelets 480 Na 135 Creatinine 0.[address] chest reviewed: 2 6, 3cm abscesses, associated pneumonia Tracheal aspirate: Alcaliginese faecalis
[2025-08-29 07:22] LABS: Hematocrit (blood only) 27.6 % (42.0-52.0); Hemoglobin 8.9 g/dl (14.0-18.0); Immature Granulocytes # (auto) 0.09 K/uL (0.01-0.20); Immature Granulocytes % (auto) 0.7 %; Mean Corpuscular Hemoglobin 28.3 pg (25.0-34.0); Mean Corpuscular Volume 87.6 fL (80.0-100.0); Platelet Count 491 K/uL (130-400); RDW Standard Deviation 45.7 fL (36.4-46.3); Red Blood Count 3.15 M/uL (4.70-6.10); White Blood Count 13.79 K/ul (4.8-10.8)
[2025-08-29 08:06] LABS: Anion Gap 6.0 (3-11); Blood Urea Nitrogen 7.0 mg/dl (6-23); Calcium 8.8 mg/dl (8.6-10.3); Carbon Dioxide 31.0 mmol/L (21-32); Chloride 97.0 mmol/L (98-107); Creatinine Clr Calc Pharmacy 212.7 ml/min; Glucose 100.0 mg/dl (70-99(Fasting)); Potassium 3.5 mmol/L (3.5-5.1); Sodium 134.0 mmol/L (136-145)
--- NOTE | 2025-08-29 12:28 | Hospitalist Progress Note ---
Date of Service August 29, 2025 Assessment & Plan (1) AMS (altered mental status): (2) Malnutrition: (3) Gastrostomy tube in place: (4) Tongue cancer: Plan: Patient is 60 year old male with PMH oropharyngeal squamous cell carcinoma, h/o oropharyngeal bleeding in 05/2025, ongoing dysphagia and hoarseness, protein calorie malnutrition, has G tube in place and on tube feeds presented to ER with with c/o AMS with hallucinations last night. Currently pt not experiencing hallucinations, is alert, oriented to person, place, season and year. Altered mental status likely acute metabolic encephalopathy Hallucinations Dehydration --CT Head:No acute intracranial findings. No change in appearance of the brain. Mental status back to baseline Cautious use of narcotics Case management to help with discharge planning Continue to monitor Plan to discharge home with home health as able Multiple lung abscesses--POA Likely due to aspiration/noncompliance with strict n.p.o. --CT Chest:Two subpleural right upper lobe irregular opacities measuring up to 6.2 x 3.2 cm. These each contain a rim-enhancing pocket of gas and fluid which measure up to 2.9 cm suggestive of small abscesses. These findings favor an infectious process such as necrotizing pneumonia, particularly given additional airspace opacities within the right upper lobe. Although less likely, a neoplastic process cannot be completely excluded. Therefore, a short-term follow-up chest CT in one month to ensure resolution is recommended. Prominent right hilar lymph node. This is likely reactive but should be assessed on follow-up CT. -- Normal procalcitonin --Blood cultures: Negative to date --Sputum cultures: Growing Alcaligenes faecalis Evaluated by infectious disease; recommended 4 weeks of IV Zosyn. Repeat CT chest; depending on CT chest -determination of final duration of antibiotic to be made. Strict n.p.o., aspiration precautions Saturating well on room air Oral hygiene, suctioning as needed Oropharyngeal squamous cell carcinoma H/O oropharyngeal bleeding Severe protein calorie malnutrition --Strict n.p.o. Very high risk for aspiration Continue tube feeds with water flushes Dietitian consulted 08/16/25 Outpatient Nutrition note: Nutren 2.0 administered by gravity bag five times a day (1,250 mL/day) -Each carton provides 500 kcals, 21 g protein, 173 mL water Water Flushes: 90 mL before and after each feed (900 mL). 120 mL water flushes QID (480 mL) 1 serving (4 g total weight, 3 g dietary fiber, 5 calories) of nutrisource fiber in with every feed. Place Cook Ice Cream consult here Patient currently on morphine tablets. Will switch oral solution at this time given patient's dysphagia and will likely need discharged on solution. Continue buprenorphine patch. IV Tylenol prn 08/23/25 first dose of carboplatin. Started radiation this week. Following with med oncology, Dr Brown and radiation oncology, Dr Marino Haney CBC, CMP in am Per Outpatient chart review: 05/17/2025 CT chest: There is no evidence of metastatic disease. Small ground-glass centrilobular nodules throughout the lung elliott may be secondary to respiratory bronchiolitis. 05/30/2025 PET scan: 1. 7 (CC) x 4.6 (AP) x 4.1 (TV) cm metabolically-active necrotic mass within the left base of tongue/tonsillar fossa, consistent with biopsy-proven malignancy. 2. Metabolically-active necrotic bilateral level II; and left supraclavicular lymph node metastases. 3. 6.5 cm (CC) metabolically-active circumferential wall thickening within the ascending colon. Differential considerations include peristalsis and primary colon cancer. Further evaluation can be obtained with colonoscopy. - Follows with Oncology, Dr Brown and Radiation oncology, Dr Marion Haney Needs follow-up with oncology on discharge PEG tube dislodged S/P replacement with new 18 Latvian PEG tube. Appreciate GI input Tube feeds resumed Hypokalemia Replace and monitor Chronic hypotension Likely secondary to poor intake IV fluids as needed Monitor blood pressure Constipation --KUB:Moderate retained stool Continue bowel regimen Tobacco use Prior cigarette smoker, reports quit but did smoke 1 cigarette this week Still chewing tobacco, reports 1 can a week Nicotine patch Encouraged cessation DVT Px: SCDs for now CODE STATUS DNI DNR Disposition Possible rehab for IV antibiotics. Updated patient's over the phone at bedside. Time spent evaluating patient, direct bedside care, chart review, placing orders, interpretation of diagnostic studies, discussion with consultants, patient, and family members, as well as other required patient management activities is 50 minutes Please note the above document was generated using voice recognition software. It may contain grammatical, syntax or spelling errors. Any formal questions or concerns about the content, text or information contained within the body of this dictation should be directly addressed to the provider for clarification Admission and Anticipated Discharge Date Admission Date: August 24, 2025 Subjective Patient seen and examined at bedside. He is lying on the bed comfortably; denies any pain or discomfort. He is saturating well on room air Awaiting bed at rehab Review of Systems Review of Systems: All systems reviewed & are unremarkable except as noted in Subjective Physical Exam Physical Exam: Physical Exam: Vitals signs as noted above General Appearance: Thin, frail, chronic ill appearing, disheveled afebrile moderately built and nourished, no apparent distress Head: normocephalic, Atraumatic,+ poor dentition,+ left edematous tongue Respiratory/Chest: Decreased breath sounds, CTA, No accessory muscle use Cardiovascular: S1, S2, No murmur Abdomen/GI:Soft, Non tender, Bowel sounds present, +PEG Extremities/Musculoskeletal:normal inspection, no edema Neurologic/Psych:AAOX3, grossly no focal neurological deficits,+ chronic hoarseness Skin: normal color, warm Results & Data Results & Data Vital Signs (Past 12 Hours) Vital Signs Temp Pulse Pulse Resp BP Pulse Ox O2 Del Method 08/29/25 10:40 37.2 C 71 16 91/47 L 93 Room Air 08/29/25 07:54 37.1 C 84 16 105/63 97 Room Air 08/29/25 07:37 79 08/29/25 02:40 36.9 C 98 H 16 106/53 L 94 Room Air (2) Malnutrition Malnutrition type: unspecified type Qualified Code(s): E46 - Unspecified protein-calorie malnutrition
[2025-08-30 06:15] LABS: Hematocrit (blood only) 25.1 % (42.0-52.0); Hemoglobin 8.1 g/dl (14.0-18.0); Immature Granulocytes # (auto) 0.09 K/uL (0.01-0.20); Immature Granulocytes % (auto) 0.7 %; Mean Corpuscular Hemoglobin 27.8 pg (25.0-34.0); Mean Corpuscular Volume 86.3 fL (80.0-100.0); Platelet Count 471 K/uL (130-400); RDW Standard Deviation 44.9 fL (36.4-46.3); Red Blood Count 2.91 M/uL (4.70-6.10); White Blood Count 13.33 K/ul (4.8-10.8)
[2025-08-30 06:40] LABS: Anion Gap 6.0 (3-11); Blood Urea Nitrogen 8.0 mg/dl (6-23); Calcium 8.7 mg/dl (8.6-10.3); Carbon Dioxide 31.0 mmol/L (21-32); Chloride 98.0 mmol/L (98-107); Creatinine Clr Calc Pharmacy 173.7 ml/min; Glucose 106.0 mg/dl (70-99(Fasting)); Potassium 3.6 mmol/L (3.5-5.1); Sodium 135.0 mmol/L (136-145)
--- NOTE | 2025-08-30 12:33 | Hospitalist Progress Note ---
Date of Service August 30, 2025 Assessment & Plan (1) AMS (altered mental status): (2) Malnutrition: (3) Gastrostomy tube in place: (4) Tongue cancer: Plan: Patient is 60 year old male with PMH oropharyngeal squamous cell carcinoma, h/o oropharyngeal bleeding in 05/2025, ongoing dysphagia and hoarseness, protein calorie malnutrition, has G tube in place and on tube feeds presented to ER with with c/o AMS with hallucinations last night. Currently pt not experiencing hallucinations, is alert, oriented to person, place, season and year. Altered mental status likely acute metabolic encephalopathy Hallucinations Dehydration --CT Head:No acute intracranial findings. No change in appearance of the brain. Mental status back to baseline Cautious use of narcotics Case management to help with discharge planning Continue to monitor Plan to discharge home with home health as able Multiple lung abscesses--POA Likely due to aspiration/noncompliance with strict n.p.o. --CT Chest:Two subpleural right upper lobe irregular opacities measuring up to 6.2 x 3.2 cm. These each contain a rim-enhancing pocket of gas and fluid which measure up to 2.9 cm suggestive of small abscesses. These findings favor an infectious process such as necrotizing pneumonia, particularly given additional airspace opacities within the right upper lobe. Although less likely, a neoplastic process cannot be completely excluded. Therefore, a short-term follow-up chest CT in one month to ensure resolution is recommended. Prominent right hilar lymph node. This is likely reactive but should be assessed on follow-up CT. -- Normal procalcitonin --Blood cultures: Negative to date --Sputum cultures: Growing Alcaligenes faecalis Evaluated by infectious disease; recommended 4 weeks of IV Zosyn. Repeat CT chest; depending on CT chest -determination of final duration of antibiotic to be made. Strict n.p.o., aspiration precautions Saturating well on room air Oral hygiene, suctioning as needed Oropharyngeal squamous cell carcinoma H/O oropharyngeal bleeding Severe protein calorie malnutrition --Strict n.p.o. Very high risk for aspiration Continue tube feeds with water flushes Dietitian consulted 08/16/25 Outpatient Nutrition note: Nutren 2.0 administered by gravity bag five times a day (1,250 mL/day) -Each carton provides 500 kcals, 21 g protein, 173 mL water Water Flushes: 90 mL before and after each feed (900 mL). 120 mL water flushes QID (480 mL) 1 serving (4 g total weight, 3 g dietary fiber, 5 calories) of nutrisource fiber in with every feed. Place Lawn Care Worker consult here Patient currently on morphine tablets. Will switch oral solution at this time given patient's dysphagia and will likely need discharged on solution. Continue buprenorphine patch. IV Tylenol prn 08/23/25 first dose of carboplatin. Started radiation this week. Following with med oncology, Dr Brown and radiation oncology, Dr Marino Haney CBC, CMP in am Per Outpatient chart review: 05/17/2025 CT chest: There is no evidence of metastatic disease. Small ground-glass centrilobular nodules throughout the lung elliott may be secondary to respiratory bronchiolitis. 05/30/2025 PET scan: 1. 7 (CC) x 4.6 (AP) x 4.1 (TV) cm metabolically-active necrotic mass within the left base of tongue/tonsillar fossa, consistent with biopsy-proven malignancy. 2. Metabolically-active necrotic bilateral level II; and left supraclavicular lymph node metastases. 3. 6.5 cm (CC) metabolically-active circumferential wall thickening within the ascending colon. Differential considerations include peristalsis and primary colon cancer. Further evaluation can be obtained with colonoscopy. - Follows with Oncology, Dr Brown and Radiation oncology, Dr Marino Haney Needs follow-up with oncology on discharge PEG tube dislodged S/P replacement with new 18 Vietnamese PEG tube. Appreciate GI input Tube feeds resumed Hypokalemia Replace and monitor Chronic hypotension Likely secondary to poor intake IV fluids as needed Monitor blood pressure Constipation --KUB:Moderate retained stool Continue bowel regimen Tobacco use Prior cigarette smoker, reports quit but did smoke 1 cigarette this week Still chewing tobacco, reports 1 can a week Nicotine patch Encouraged cessation DVT Px: SCDs for now CODE STATUS DNI DNR Disposition I discussed the goals of care with the patient. Overall, patient's functional capacity is deteriorating. He currently has lung abscesses likely secondary to aspiration which is irreversible. I discussed that he will likely end up back and forth to the hospital multiple times. He is unsure that he would like to go to rehab as well. I discussed options including home hospice if he thinks it is appropriate; patient to discuss with his further. Discharge plan uncertain at this time Time spent evaluating patient, direct bedside care, chart review, placing orders, interpretation of diagnostic studies, discussion with consultants, patient, and family members, as well as other required patient management activities is 50 minutes Please note the above document was generated using voice recognition software. It may contain grammatical, syntax or spelling errors. Any formal questions or concerns about the content, text or information contained within the body of this dictation should be directly addressed to the provider for clarification Admission and Anticipated Discharge Date Admission Date: August 24, 2025 Subjective Patient seen and examined at bedside. He is lying in the bed comfortably symptoms denies any pain or discomfort. Vital signs appear stable and he is saturating well on room air Review of Systems Review of Systems: All systems reviewed & are unremarkable except as noted in Subjective Physical Exam Physical Exam: Physical Exam: Vitals signs as noted above General Appearance: Thin, frail, chronic ill appearing, disheveled afebrile moderately built and nourished, no apparent distress Head: normocephalic, Atraumatic,+ poor dentition,+ left edematous tongue Respiratory/Chest: Decreased breath sounds, CTA, No accessory muscle use Cardiovascular: S1, S2, No murmur Abdomen/GI:Soft, Non tender, Bowel sounds present, +PEG Extremities/Musculoskeletal:normal inspection, no edema Neurologic/Psych:AAOX3, grossly no focal neurological deficits,+ chronic hoarseness Skin: normal color, warm Results & Data Results & Data Vital Signs (Past 12 Hours) Vital Signs Temp Pulse Pulse Resp BP BP Pulse Ox 08/30/25 07:26 84 08/30/25 07:00 36.7 C 86 16 96/53 L 98 08/30/25 03:52 36.6 C 84 16 97/54 L 95 O2 Del Method 08/30/25 07:26 08/30/25 07:00 Room Air 08/30/25 03:52 Room Air (2) Malnutrition Malnutrition type: unspecified type Qualified Code(s): E46 - Unspecified protein-calorie malnutrition
[2025-08-31 06:52] LABS: Hematocrit (blood only) 24.6 % (42.0-52.0); Hemoglobin 7.9 g/dl (14.0-18.0); Immature Granulocytes # (auto) 0.07 K/uL (0.01-0.20); Immature Granulocytes % (auto) 0.5 %; Mean Corpuscular Hemoglobin 27.6 pg (25.0-34.0); Mean Corpuscular Volume 86.0 fL (80.0-100.0); Platelet Count 452 K/uL (130-400); RDW Standard Deviation 45.1 fL (36.4-46.3); Red Blood Count 2.86 M/uL (4.70-6.10); White Blood Count 13.20 K/ul (4.8-10.8)
[2025-08-31 07:15] LABS: Anion Gap 8.0 (3-11); Blood Urea Nitrogen 10.0 mg/dl (6-23); Calcium 8.9 mg/dl (8.6-10.3); Carbon Dioxide 28.0 mmol/L (21-32); Chloride 98.0 mmol/L (98-107); Creatinine Clr Calc Pharmacy 242.2 ml/min; Glucose 103.0 mg/dl (70-99(Fasting)); Potassium 3.7 mmol/L (3.5-5.1); Sodium 134.0 mmol/L (136-145)
[2025-08-31 07:39] LABS: RBC Morphology Unremarkable
[2025-08-31] MEDS: 4.5GM X1 IV STA (08:11)
--- NOTE | 2025-08-31 10:09 | Hospitalist Progress Note ---
Date of Service August 31, 2025 Assessment & Plan (1) AMS (altered mental status): (2) Malnutrition: (3) Gastrostomy tube in place: (4) Tongue cancer: Plan: Patient is 60 year old male with PMH oropharyngeal squamous cell carcinoma, h/o oropharyngeal bleeding in 05/2025, ongoing dysphagia and hoarseness, protein calorie malnutrition, has G tube in place and on tube feeds presented to ER with with c/o AMS with hallucinations last night. Currently pt not experiencing hallucinations, is alert, oriented to person, place, season and year. Altered mental status likely acute metabolic encephalopathy-resolve Hallucinations Dehydration --CT Head:No acute intracranial findings. No change in appearance of the brain. Mental status back to baseline Cautious use of narcotics Multiple lung abscesses--POA Likely due to aspiration/noncompliance with strict n.p.o. --CT Chest:Two subpleural right upper lobe irregular opacities measuring up to 6.2 x 3.2 cm. These each contain a rim-enhancing pocket of gas and fluid which measure up to 2.9 cm suggestive of small abscesses. These findings favor an infectious process such as necrotizing pneumonia, particularly given additional airspace opacities within the right upper lobe. Although less likely, a neoplastic process cannot be completely excluded. Therefore, a short-term follow-up chest CT in one month to ensure resolution is recommended. Prominent right hilar lymph node. This is likely reactive but should be assessed on follow-up CT. -- Normal procalcitonin --Blood cultures: Negative to date --Sputum cultures: Growing Alcaligenes faecalis Evaluated by infectious disease; recommended 4 weeks of IV Zosyn. Repeat CT chest; depending on CT chest -determination of final duration of antibiotic to be made. Strict n.p.o., aspiration precautions Saturating well on room air Oral hygiene, suctioning as needed Oropharyngeal squamous cell carcinoma H/O oropharyngeal bleeding Severe protein calorie malnutrition --Strict n.p.o. Very high risk for aspiration Continue tube feeds with water flushes Dietitian consulted 08/16/25 Outpatient Nutrition note: Nutren 2.0 administered by gravity bag five times a day (1,250 mL/day) -Each carton provides 500 kcals, 21 g protein, 173 mL water Water Flushes: 90 mL before and after each feed (900 mL). 120 mL water flushes QID (480 mL) 1 serving (4 g total weight, 3 g dietary fiber, 5 calories) of nutrisource fiber in with every feed. Place Ventilation Mechanic consult here Patient currently on morphine tablets. Will switch oral solution at this time given patient's dysphagia and will likely need discharged on solution. Continue buprenorphine patch. IV Tylenol prn 08/23/25 first dose of carboplatin. Started radiation this week. Following with med oncology, Dr Brown and radiation oncology, Dr Marino Haney CBC, CMP in am Per Outpatient chart review: 05/17/2025 CT chest: There is no evidence of metastatic disease. Small ground-glass centrilobular nodules throughout the lung elliott may be secondary to respiratory bronchiolitis. 05/30/2025 PET scan: 1. 7 (CC) x 4.6 (AP) x 4.1 (TV) cm metabolically-active necrotic mass within the left base of tongue/tonsillar fossa, consistent with biopsy-proven malignancy. 2. Metabolically-active necrotic bilateral level II; and left supraclavicular lymph node metastases. 3. 6.5 cm (CC) metabolically-active circumferential wall thickening within the ascending colon. Differential considerations include peristalsis and primary colon cancer. Further evaluation can be obtained with colonoscopy. - Follows with Oncology, Dr Brown and Radiation oncology, Dr Marino Haney Needs follow-up with oncology on discharge PEG tube dislodged S/P replacement with new 18 Italian PEG tube. Appreciate GI input Tube feeds resumed Hypokalemia Replace and monitor Chronic hypotension Likely secondary to poor intake IV fluids as needed Monitor blood pressure Constipation --KUB:Moderate retained stool Continue bowel regimen Tobacco use Prior cigarette smoker, reports quit but did smoke 1 cigarette this week Still chewing tobacco, reports 1 can a week Nicotine patch Encouraged cessation DVT Px: SCDs for now CODE STATUS DNI DNR Disposition Plan for family meeting today afternoon for goals of care discussion. Determination of the disposition to be made after further discussion with patient's and patient at bedside. Time spent evaluating patient, direct bedside care, chart review, placing orders, interpretation of diagnostic studies, discussion with consultants, patient, and family members, as well as other required patient management activities is 50 minutes Please note the above document was generated using voice recognition software. It may contain grammatical, syntax or spelling errors. Any formal questions or concerns about the content, text or information contained within the body of this dictation should be directly addressed to the provider for clarification Admission and Anticipated Discharge Date Admission Date: August 24, 2025 Subjective Patient seen and examined at bedside. Is lying in the bed comfortably; denies any pain or discomfort. He is saturating well on room air. No significant events overnight Review of Systems Review of Systems: All systems reviewed & are unremarkable except as noted in Subjective Physical Exam Physical Exam: Physical Exam: Vitals signs as noted above General Appearance: Thin, frail, chronic ill appearing, afebrile moderately built and nourished, no apparent distress Head: normocephalic, Atraumatic,+ poor dentition,+ left edematous tongue Respiratory/Chest: Decreased breath sounds, CTA, No accessory muscle use Cardiovascular: S1, S2, No murmur Abdomen/GI:Soft, Non tender, Bowel sounds present, +PEG Extremities/Musculoskeletal:normal inspection, no edema Neurologic/Psych:AAOX3, grossly no focal neurological deficits,+ chronic hoarseness Skin: normal color, warm Results & Data Results & Data Vital Signs (Past 12 Hours) Vital Signs Temp Pulse Pulse Resp BP Pulse Ox O2 Del Method 08/31/25 07:45 87 08/31/25 07:26 36.5 C 84 18 91/51 L 93 Room Air 08/31/25 04:23 37.6 C H 85 16 105/59 L 95 Room Air 08/30/25 23:51 37.3 C 82 18 106/58 L 94 Room Air (2) Malnutrition Malnutrition type: unspecified type Qualified Code(s): E46 - Unspecified protein-calorie malnutrition
[2025-08-31] MEDS: 4.5GM EXT INFUSION IV SCH (15:00)
--- NOTE | 2025-09-01 08:37 | XRay Report ---
KUB CLINICAL HISTORY: positioning of g-tube COMPARISON STUDY: KUB August 24, 2025. FINDINGS: The bowel gas pattern is normal. The gastrostomy tube projects over the stomach however pos itioning cannot be confirmed without injection of contrast. No calcifications within the abdomen or p gertrudis are identified. IMPRESSION: 1. Gastrostomy tube projects over the stomach however intraluminal position cannot be confirmed witho ut injection of contrast. 2. No evidence for a bowel obstruction. ACT 112: Negative or not required by law. Electronically signed by: Saul Segovia M.D. 09/01/2025 8:36 AM
--- NOTE | 2025-09-01 09:12 | Communication Note ---
Date of Service: September 01, [address] Washington to look at patients PEG tube. Recently replaced with replacement tube. Site looks good. PEG with balloon freely moveable and locks in place with balloon No problems with PEG
--- NOTE | 2025-09-01 10:29 | Hospitalist Progress Note ---
Date of Service September 01, 2025 Assessment & Plan (1) AMS (altered mental status): (2) Malnutrition: (3) Gastrostomy tube in place: (4) Tongue cancer: Plan: Patient is 60 year old male with PMH oropharyngeal squamous cell carcinoma, h/o oropharyngeal bleeding in 05/2025, ongoing dysphagia and hoarseness, protein calorie malnutrition, has G tube in place and on tube feeds presented to ER with with c/o AMS with hallucinations last night. Currently pt not experiencing hallucinations, is alert, oriented to person, place, season and year. Altered mental status likely acute metabolic encephalopathy-resolve Hallucinations Dehydration --CT Head:No acute intracranial findings. No change in appearance of the brain. Mental status back to baseline Cautious use of narcotics Multiple lung abscesses--POA Likely due to aspiration/noncompliance with strict n.p.o. --CT Chest:Two subpleural right upper lobe irregular opacities measuring up to 6.2 x 3.2 cm. These each contain a rim-enhancing pocket of gas and fluid which measure up to 2.9 cm suggestive of small abscesses. These findings favor an infectious process such as necrotizing pneumonia, particularly given additional airspace opacities within the right upper lobe. Although less likely, a neoplastic process cannot be completely excluded. Therefore, a short-term follow-up chest CT in one month to ensure resolution is recommended. Prominent right hilar lymph node. This is likely reactive but should be assessed on follow-up CT. -- Normal procalcitonin --Blood cultures: Negative to date --Sputum cultures: Growing Alcaligenes faecalis Goals of care was discussed with the patient, patient's and close family members at bedside on August 31, 2025. I outlined patient's current clinical condition, deteriorating functional status. Patient had received first dose of chemotherapy; had not tolerated it well. Patient has reiterated multiple times that he wants to go home; does not want interventions and wants to be made comfo rtable. His also agreed on bringing the patient home. Hospice prescription provided to case management; plan for discharge to home hospice when equipment is arranged. Plan to place him on oral antibiotic at the time of discharge. Oropharyngeal squamous cell carcinoma H/O oropharyngeal bleeding Severe protein calorie malnutrition --Strict n.p.o. Very high risk for aspiration Continue tube feeds with water flushes Dietitian consulted 08/16/25 Outpatient Nutrition note: Nutren 2.0 administered by gravity bag five times a day (1,250 mL/day) -Each carton provides 500 kcals, 21 g protein, 173 mL water Water Flushes: 90 mL before and after each feed (900 mL). 120 mL water flushes QID (480 mL) 1 serving (4 g total weight, 3 g dietary fiber, 5 calories) of nutrisource fiber in with every feed. Place Pickle Pumper consult here Patient currently on morphine tablets. Will switch oral solution at this time given patient's dysphagia and will likely need discharged on solution. Continue buprenorphine patch. IV Tylenol prn 08/23/25 first dose of carboplatin. Started radiation this week. Following with med oncology, Dr Brown and radiation oncology, Dr Marino Haney CBC, CMP in am Per Outpatient chart review: 05/17/2025 CT chest: There is no evidence of metastatic disease. Small ground-glass centrilobular nodules throughout the lung elliott may be secondary to respiratory bronchiolitis. 05/30/2025 PET scan: 1. 7 (CC) x 4.6 (AP) x 4.1 (TV) cm metabolically-active necrotic mass within the left base of tongue/tonsillar fossa, consistent with biopsy-proven malignancy. 2. Metabolically-active necrotic bilateral level II; and left supraclavicular lymph node metastases. 3. 6.5 cm (CC) metabolically-active circumferential wall thickening within the ascending colon. Differential considerations include peristalsis and primary colon cancer. Further evaluation can be obtained with colonoscopy. PEG tube dislodged S/P replacement with new 18 [place] PEG tube. Reevaluated by GI on August 2025; no issues with the PEG tubecan continue feeding Hypokalemia Replace and monitor Chronic hypotension Likely secondary to poor intake IV fluids as needed Monitor blood pressure Constipation --KUB:Moderate retained stool Continue bowel regimen Tobacco use Prior cigarette smoker, reports quit but did smoke 1 cigarette this week Still chewing tobacco, reports 1 can a week Nicotine patch Encouraged cessation DVT Px: SCDs for now CODE STATUS DNI DNR Disposition Home with home hospice in next few days Time spent evaluating patient, direct bedside care, chart review, placing orders, interpretation of diagnostic studies, discussion with consultants, patient, and family members, as well as other required patient management activities is 50 minutes Please note the above document was generated using voice recognition software. It may contain grammatical, syntax or spelling errors. Any formal questions or concerns about the content, text or information contained within the body of this dictation should be directly addressed to the provider for clarification Admission and Anticipated Discharge Date Admission Date: August 24, 2025 Subjective Seen and examined at bedside. He is comfortable lying in bed; not in distress. Denies any abdominal pain, chest pain, shortness of breath, fever or chills. Overnightthere was concern of possible PEG tube dysfunction. However, upon evaluation by Hammad concerns with PEG tube malfunction. Review of Systems Review of Systems: All systems reviewed & are unremarkable except as noted in Subjective Physical Exam Physical Exam: Physical Exam: Vitals signs as noted above General Appearance: Thin, frail, chronic ill appearing, afebrile moderately built and nourished, no apparent distress Head: normocephalic, Atraumatic,+ poor dentition,+ left edematous tongue Respiratory/Chest: Decreased breath sounds, CTA, No accessory muscle use Cardiovascular: S1, S2, No murmur Abdomen/GI:Soft, Non tender, Bowel sounds present, +PEG Extremities/Musculoskeletal:normal inspection, no edema Neurologic/Psych:AAOX3, grossly no focal neurological deficits,+ chronic hoarseness Skin: normal color, warm Results & Data Results & Data Vital Signs (Past 12 Hours) Vital Signs Temp Pulse Pulse Resp BP Pulse Ox O2 Del Method 09/01/25 07:35 36.9 C 81 16 104/60 99 Room Air 09/01/25 06:45 81 09/01/25 02:51 36.7 C 83 18 105/57 L 95 Room Air 08/31/25 22:25 36.8 C 83 18 98/59 L 95 Room Air (2) Malnutrition Malnutrition type: unspecified type Qualified Code(s): E46 - Unspecified protein-calorie malnutrition
--- NOTE | 2025-09-02 09:16 | Hospitalist Progress Note ---
Date of Service September 02, 2025 Assessment & Plan (1) AMS (altered mental status): (2) Malnutrition: (3) Gastrostomy tube in place: (4) Tongue cancer: Plan: Patient is 60 year old male with PMH oropharyngeal squamous cell carcinoma, h/o oropharyngeal bleeding in 05/2025, ongoing dysphagia and hoarseness, protein calorie malnutrition, has G tube in place and on tube feeds presented to ER with with c/o AMS with hallucinations last night. Currently pt not experiencing hallucinations, is alert, oriented to person, place, season and year. Altered mental status likely acute metabolic encephalopathy-resolve Hallucinations Dehydration --CT Head:No acute intracranial findings. No change in appearance of the brain. Mental status back to baseline Cautious use of narcotics Multiple lung abscesses--POA Likely due to aspiration/noncompliance with strict n.p.o. --CT Chest:Two subpleural right upper lobe irregular opacities measuring up to 6.2 x 3.2 cm. These each contain a rim-enhancing pocket of gas and fluid which measure up to 2.9 cm suggestive of small abscesses. These findings favor an infectious process such as necrotizing pneumonia, particularly given additional airspace opacities within the right upper lobe. Although less likely, a neoplastic process cannot be completely excluded. Therefore, a short-term follow-up chest CT in one month to ensure resolution is recommended. Prominent right hilar lymph node. This is likely reactive but should be assessed on follow-up CT. -- Normal procalcitonin --Blood cultures: Negative to date --Sputum cultures: Growing Alcaligenes faecalis Goals of care was discussed with the patient, patient's and close family members at bedside on August 31, 2025. I outlined patient's current clinical condition, deteriorating functional status. Patient had received first dose of chemotherapy; had not tolerated it well. Patient has reiterated multiple times that he wants to go home; does not want interventions and wants to be made comfo rtable. His also agreed on bringing the patient home. Hospice prescription provided to case management; plan for discharge to home hospice when equipment is arranged. Plan to place him on oral antibiotic at the time of discharge. Oropharyngeal squamous cell carcinoma H/O oropharyngeal bleeding Severe protein calorie malnutrition --Strict n.p.o. Very high risk for aspiration Continue tube feeds with water flushes Dietitian consulted 08/16/25 Outpatient Nutrition note: Nutren 2.0 administered by gravity bag five times a day (1,250 mL/day) -Each carton provides 500 kcals, 21 g protein, 173 mL water Water Flushes: 90 mL before and after each feed (900 mL). 120 mL water flushes QID (480 mL) 1 serving (4 g total weight, 3 g dietary fiber, 5 calories) of nutrisource fiber in with every feed. Place Stone Driller Helper consult here Patient currently on morphine tablets. Will switch oral solution at this time given patient's dysphagia and will likely need discharged on solution. Continue buprenorphine patch. IV Tylenol prn 08/23/25 first dose of carboplatin. Started radiation this week. Following with med oncology, Dr Brown and radiation oncology, Dr Marino Haney CBC, CMP in am Per Outpatient chart review: 05/17/2025 CT chest: There is no evidence of metastatic disease. Small ground-glass centrilobular nodules throughout the lung elliott may be secondary to respiratory bronchiolitis. 05/30/2025 PET scan: 1. 7 (CC) x 4.6 (AP) x 4.1 (TV) cm metabolically-active necrotic mass within the left base of tongue/tonsillar fossa, consistent with biopsy-proven malignancy. 2. Metabolically-active necrotic bilateral level II; and left supraclavicular lymph node metastases. 3. 6.5 cm (CC) metabolically-active circumferential wall thickening within the ascending colon. Differential considerations include peristalsis and primary colon cancer. Further evaluation can be obtained with colonoscopy. PEG tube dislodged S/P replacement with new 18 [place] PEG tube. Reevaluated by GI on August 2025; no issues with the PEG tubecan continue feeding Hypokalemia Replace and monitor Chronic hypotension Likely secondary to poor intake IV fluids as needed Monitor blood pressure Constipation --KUB:Moderate retained stool Continue bowel regimen Tobacco use Prior cigarette smoker, reports quit but did smoke 1 cigarette this week Still chewing tobacco, reports 1 can a week Nicotine patch Encouraged cessation DVT Px: SCDs for now CODE STATUS DNI DNR Disposition Home with home hospice in next few days Please note the above document was generated using voice recognition software. It may contain grammatical, syntax or spelling errors. Any formal questions or concerns about the content, text or information contained within the body of this dictation should be directly addressed to the provider for clarification Admission and Anticipated Discharge Date Admission Date: August 24, 2025 Subjective Patient seen and examined at bedside. Comfortable; not in distress. Denies fever, chills, chest pain, shortness of breath, abdominal pain or urinary symptoms. No significant overnight events Review of Systems Review of Systems: All systems reviewed & are unremarkable except as noted in Subjective Physical Exam Physical Exam: Physical Exam: Vitals signs as noted above General Appearance: Thin, frail, chronic ill appearing, afebrile moderately built and nourished, no apparent distress Head: normocephalic, Atraumatic,+ poor dentition,+ left edematous tongue Respiratory/Chest: Decreased breath sounds, CTA, No accessory muscle use Cardiovascular: S1, S2, No murmur Abdomen/GI:Soft, Non tender, Bowel sounds present, +PEG Extremities/Musculoskeletal:normal inspection, no edema Neurologic/Psych:AAOX3, grossly no focal neurological deficits,+ chronic hoarseness Skin: normal color, warm Results & Data Results & Data Vital Signs (Past 12 Hours) Vital Signs Temp Pulse Pulse Resp BP Pulse Ox O2 Del Method 09/02/25 07:31 83 09/02/25 07:09 36.4 C L 80 18 108/62 97 Room Air 09/02/25 03:07 37.2 C 85 18 113/61 98 Room Air 09/02/25 00:00 84 09/01/25 22:38 37.0 C 88 18 114/72 99 Room Air (2) Malnutrition Malnutrition type: unspecified type Qualified Code(s): E46 - Unspecified protein-calorie malnutrition
[2025-09-02] MEDS: NEOMYCIN/POLYMYX/BACITR OINT 15 GM TUBE EXT SCH (15:39)
--- NOTE | 2025-09-03 10:05 | Hospitalist Progress Note ---
Date of Service September 03, 2025 Assessment & Plan (1) AMS (altered mental status): (2) Malnutrition: (3) Gastrostomy tube in place: (4) Tongue cancer: Plan: Multiple lung abscesses Aspiration pneumonia Oropharyngeal squamous cell carcinoma Patient is 60 year old male with PMH oropharyngeal squamous cell carcinoma, h/o oropharyngeal bleeding in 05/2025, ongoing dysphagia and hoarseness, protein calorie malnutrition, has G tube in place and on tube feeds presented to ER with with c/o AMS with hallucinations. Workup during the hospitalization showed multiple lung abscesses. Patient was started on antibiotics, IV fluids. Infectious disease and pulmonology was consulted for comanagement. Infectious disease recommended at least 4 weeks of antibiotic. Goals of care was discussed with the patient, patient's and close family members at bedside on August 31, 2025. I outlined patient's current clinical condition, deteriorating functional status. Patient had received first dose of chemotherapy; had not tolerated it well. Patient has reiterated multiple times that he wants to go home; does not want interventions and wants to be made comfortable. His also agreed on bringing the patient home. Awaiting arrangements to be made at home for patient to be transferred home on home hospice Continue tube feeds Continue IV antibiotics while inpatient; switch over to p.o. at the time of the discharge. Please note the above document was generated using voice recognition software. It may contain grammatical, syntax or spelling errors. Any formal questions or concerns about the content, text or information contained within the body of this dictation should be directly addressed to the provider for clarification Admission and Anticipated Discharge Date Admission Date: August 24, 2025 Subjective Patient seen and examined at bedside. He is comfortable; not in distress. Denies any pain or discomfort. Review of Systems Review of Systems: All systems reviewed & are unremarkable except as noted in Subjective Physical Exam Physical Exam: Physical Exam: Vitals signs as noted above General Appearance: Thin, frail, chronic ill appearing, afebrile moderately built and nourished, no apparent distress Head: normocephalic, Atraumatic,+ poor dentition,+ left edematous tongue Respiratory/Chest: Decreased breath sounds, CTA, No accessory muscle use Cardiovascular: S1, S2, No murmur Abdomen/GI:Soft, Non tender, Bowel sounds present, +PEG Extremities/Musculoskeletal:normal inspection, no edema Neurologic/Psych:AAOX3, grossly no focal neurological deficits,+ chronic hoarseness Skin: normal color, warm Results & Data Results & Data Vital Signs (Past 12 Hours) Vital Signs Temp Pulse Pulse Resp BP Pulse Ox O2 Del Method 09/03/25 08:23 37.2 C 107 H 16 101/52 L 94 Room Air 09/03/25 07:16 83 09/03/25 04:28 36.7 C 85 20 106/59 L 98 Room Air 09/03/25 00:17 37.1 C 91 H 20 113/62 98 Room Air 09/02/25 22:30 85 (2) Malnutrition Malnutrition type: unspecified type Qualified Code(s): E46 - Unspecified protein-calorie malnutrition
[2025-09-04 04:29] VITALS: RESP 18; O2SAT 98
[2025-09-04 07:07] VITALS: BP 108/60; TEMP 98.2
--- NOTE | 2025-09-04 10:18 | Hospitalist Progress Note ---
Date of Service September 04, 2025 Assessment & Plan (1) AMS (altered mental status): (2) Malnutrition: (3) Gastrostomy tube in place: (4) Tongue cancer: Plan: Multiple lung abscesses Aspiration pneumonia Oropharyngeal squamous cell carcinoma Patient is 60 year old male with PMH oropharyngeal squamous cell carcinoma, h/o oropharyngeal bleeding in 05/2025, ongoing dysphagia and hoarseness, protein calorie malnutrition, has G tube in place and on tube feeds presented to ER with with c/o AMS with hallucinations. Workup during the hospitalization showed multiple lung abscesses. Patient was started on antibiotics, IV fluids. Infectious disease and pulmonology was consulted for comanagement. Infectious disease recommended at least 4 weeks of antibiotic. Goals of care was discussed with the patient, patient's and close family members at bedside on August 31, 2025. I outlined patient's current clinical condition, deteriorating functional status. Patient had received first dose of chemotherapy; had not tolerated it well. Patient has reiterated multiple times that he wants to go home; does not want interventions and wants to be made comfortable. His also agreed on bringing the patient home. Awaiting arrangements to be made at home for patient to be transferred home on home hospice Continue tube feeds Continue IV antibiotics while inpatient; switch over to p.o. at the time of the discharge. Please note the above document was generated using voice recognition software. It may contain grammatical, syntax or spelling errors. Any formal questions or concerns about the content, text or information contained within the body of this dictation should be directly addressed to the provider for clarification Admission and Anticipated Discharge Date Admission Date: August 24, 2025 Subjective Patient seen and examined at bedside. Comfortable; not in distress. Denies fever, chills, chest pain, shortness of breath, abdominal pain or urinary symptoms. No significant overnight events Review of Systems Review of Systems: All systems reviewed & are unremarkable except as noted in Subjective Physical Exam Physical Exam: Physical Exam: Vitals signs as noted above General Appearance: Thin, frail, chronic ill appearing, afebrile moderately built and nourished, no apparent distress Head: normocephalic, Atraumatic,+ poor dentition,+ left edematous tongue Respiratory/Chest: Decreased breath sounds, CTA, No accessory muscle use Cardiovascular: S1, S2, No murmur Abdomen/GI:Soft, Non tender, Bowel sounds present, +PEG Extremities/Musculoskeletal:normal inspection, no edema Neurologic/Psych:AAOX3, grossly no focal neurological deficits,+ chronic hoarseness Skin: normal color, warm Results & Data Results & Data Vital Signs (Past 12 Hours) Vital Signs Temp Pulse Pulse Resp BP Pulse Ox O2 Del Method 09/04/25 07:07 36.8 C 78 18 108/60 98 Room Air 09/04/25 05:36 82 09/04/25 03:48 36.6 C 85 18 100/58 L 98 Room Air 09/03/25 23:51 37.2 C 88 16 119/71 97 Room Air (2) Malnutrition Malnutrition type: unspecified type Qualified Code(s): E46 - Unspecified protein-calorie malnutrition
--- NOTE | 2025-09-04 10:42 | Discharge Summary ---
Date of Service September 04, 2025 Admission HPI Per Admitting Provider Patient is 60 year old male with PMH oropharyngeal squamous cell carcinoma, h/o oropharyngeal bleeding in 05/2025, ongoing dysphagia and hoarseness, protein calorie malnutrition, has G tube in place and on tube feeds presented to ER with with c/o AMS with hallucinations last night. Per she reports patient seemed to have visual hallucinations last night in which he reported he was carrying tomatoes. Per chart review feeding tube placed 07/05/2025. Per has just been doing feedings through tube for a couple of weeks as she reports she was unsure how to administer tube feeds. She expresses that she is overwhelmed and uncomfortable with tube feeds at home. She voices is trying to get home health nurse in to help. Per chart review patient to be receiving tube feeds five times a day but is giving three times a day as she states patient doesn't want any more frequent doses and states not doing the recommended amount of free water flushes. Reports patient takes pills by mouth and tries sipping on water but is often unable to swallow. Reports some intermittent choking. Patient reports still chewing tobacco. Patient now using morphine tablets and reports tries to cut them up smaller to assist in him taking. Reports patient tries not to take morphine very often but is using his buprenorphine patch. states will sometimes use ibuprofen as needed for ANNA, tongue and neck pain. Reports ongoing frontal ANNA that has been present since April 2025. denies any increased ANNA or intensity. Patient reports his goal would be to return home and is not interested in placement. Is following with oncology, Dr Brown and Radiation oncology, Dr Marino Haney. reports first chemo treatment was yesterday and states started radiation this week. Per outpatient chart review [facility] Palliative visit on 07/25/25 reporting intractable ANNA, had noted hypotension. Per outpatient review patient has had ongoing hypotension. reports has lactulose to use for constipation at home however has not been using. Patient reports been over a week since last BM. Denies fever/chills, diaphoresis, vomiting, diarrhea, dizziness, syncope, vision changes, CP, SOB, palpitations, rhinorrhea, abdominal pain, extremity edema, rashes, urinary symptoms. Admission Exam Per Admitting Provider General: Cachectic, + chronic ill-appearing male, +disheveled, malodorous Head: normocephalic, atraumatic Eyes: conjunctiva non-injected, anicteric ENT: normal inspection external ears, nose, +poor and missing dentition, +tongue edema, greater to left side with known mass, membranes dry, +muffled voice and difficult to understand Neck: +large mass left neck, mild tenderness to palpation, trachea midline Lungs: no respiratory distress, 98% on RA, no wheezing/rhonchi/rales noted CV: RRR, no murmur, no pretibial edema Abd: cachectic appearance, hypoactive BS, +feeding tube in place and appears soiled, no surrounding erythema noted, soft, non-tender Ext: no cyanosis, no calf tenderness Neuro: Alert, oriented to person, place and season and year. Unsure of month or day of week, no focal deficits noted, normal affect Skin: warm, dry Principal Diagnosis Multiple lung abscesses Aspiration pneumonia Oropharyngeal squamous cell carcinoma Discharge Exam Physical Exam: Vitals signs as noted above General Appearance: Thin, frail, chronic ill appearing, afebrile moderately built and nourished, no apparent distress Head: normocephalic, Atraumatic,+ poor dentition,+ left edematous tongue Respiratory/Chest: Decreased breath sounds, CTA, No accessory muscle use Cardiovascular: S1, S2, No murmur Abdomen/GI:Soft, Non tender, Bowel sounds present, +PEG Extremities/Musculoskeletal:normal inspection, no edema Neurologic/Psych:AAOX3, grossly no focal neurological deficits,+ chronic hoarseness Skin: normal color, warm Discharge Data Allergies Allergy/AdvReac Type Severity Reaction Status Date / Time No Known Drug Allergies Allergy Unknown Verified 08/24/25 18:11 Consultations 08/24/25 12:59 ED Decision to Admit Stat 08/25/25 08:22 Consult Pulmonology Routine 08/27/25 10:57 Consult Gastroenterology Routine 08/27/25 12:38 Consult Infectious Diseases Routine 08/28/25 08:00 Consult Palliative Care Routine 09/01/25 07:23 Consult Gastroenterology Routine Ordered Studies 08/24/25 10:02 CT head/brain wo con Stat 08/24/25 15:00 CT chest diagnostic w con Routine Hospital Course (1) AMS (altered mental status): (2) Malnutrition: (3) Gastrostomy tube in place: (4) Tongue cancer: Multiple lung abscesses Aspiration pneumonia Oropharyngeal squamous cell carcinoma Patient is 60 year old male with PMH oropharyngeal squamous cell carcinoma, h/o oropharyngeal bleeding in 05/2025, ongoing dysphagia and hoarseness, protein calorie malnutrition, has G tube in place and on tube feeds presented to ER with with c/o AMS with hallucinations. Workup during the hospitalization showed multiple lung abscesses. Patient was started on antibiotics, IV fluids. Infectious disease and pulmonology was consulted for comanagement. Infectious disease recommended at least 4 weeks of antibiotic. Goals of care was discussed with the patient, patient's and close family members at bedside on August 31, 2025. I outlined patient's current clinical condition, deteriorating functional status. Patient had received first dose of chemotherapy; had not tolerated it well. Patient has reiterated multiple times that he wants to go home; does not want interventions and wants to be made comfortable. His also agreed on bringing the patient home. Awaiting arrangements to be made at home for patient to be transferred home on home hospice. No meds changes were done at discharge. Please note the above document was generated using voice recognition software. It may contain grammatical, syntax or spelling errors. Any formal questions or concerns about the content, text or information contained within the body of this dictation should be directly addressed to the provider for clarification Total Time Total Time Spent Total Time Spent (In Minutes): 45 Total Time Includes: Examination of the Patient, Discharge Planning, Medication Reconciliation, Communication With Other Providers and Other Discharge Plan Discharge Items Patient Disposition: Hospice - Home Reason For Visit: AMS, TONGUE CA Discharge Diagnosis: Multiple lung abscesses Aspiration pneumonia Oropharyngeal squamous cell carcinoma Condition on Discharge: Fair Activity: Resume your previous activity Non-emergency contact: Primary Care Provider Call non-emergency contact if: you have any medication questions and your symptoms worsen Follow-up/Referrals: Abdon Mancia MD [Primary Care Provider] - Diet: Regular Addtl Attending Provider Instructions: Please follow recommendation by home hospice. Pending Studies at Discharge: No Stand-Alone Forms: [facility] Medications and DC Order Prescriptions: Continued acetaminophen [Tylenol] 325 mg tablet 325 mg PO QID PRN (Reason: Pain) buprenorphine [Butrans] 5 mcg/hour patch weekly 1 patch transdermal Q7D ibuprofen [Advil] 200 mg tablet 200 mg PO Q6H PRN (Reason: Pain) prochlorperazine maleate 10 mg Tablet 10 mg PO Q6H PRN (Reason: Nausea) ondansetron 8 mg Tablet,Disintegrating 8 mg PO Q8H PRN (Reason: Nausea) Nutrisource Fiber Powder 4 g feeding tube UD Rx Instructions: Administer 4g with each feeding through feeding tube via gravity bag five times a day Nutren 2.0 Liquid 250 ea feeding tube UD Rx Instructions: Administer through feeding tube via gravity 250ml five times a day morphine 15 mg Tablet 15 mg PO Q6H PRN (Reason: Severe Pain (Scale Score 7-10)) lactulose 10 gram/15 mL solution 15 ml PO TID water Liquid 1 ea Rx Instructions: 90ml water in feeding tube before and after each feed 120ml water flushes through feeding tube QID Discharge Orders: Discharge Order (Routine); Ordered 09/04/25 Ordered By: Alireza Washington Admission Data Admit Date/Time: 08/24/25 14:04 Attending Provider: Alireza Washington Admit Provider: Nino Escalante Primary Care Provider: Abdon Mancia Other Providers: Nino Escalante; Antonio Altamirano; John Rodarte; Maryjo Ramos; Twila Vang; Bertin Camara; Howard Tucker; Mel Teran; Lamont Cabrera; [facility]; [facility]; Miguelina Anderson; Theodore Rand; Suzie Mathis; Deborah Morales; Indigo Mcdonald; Dominique Patel; Jorge Luis Gardner; Anna Sr; Ashley Baca; Heber Fredeman; Nini El; Francisca Sloan; Melva Kirk; Citlalli Bautista; Sylvester Chawla; Dominic Pierson; Marisol Omer; Zak Winston Jr; Michael Bianchi; Santino Mercedes; Jac Bustamante; Jess Varela; Norbert Romano I; Anastasiya Billings; Erik Smith; Luis Galeas; Lamont Wynn; Dillon Higuera; Clarisse Lynch; Domenic Anderson; Jose Enrique Ngo; Luis Hathaway I.; Jerry Hyde II; Michelle Feldman.; Landon Escalante.; Danny Salvador.; Sky Granados; [facility]
[2025-09-04 11:16] VITALS: PULSE 78
== END 2025-09-04 14:21 | disposition hospice, home (50) | DRG 177 ==
LOC: ED 09:32 → 2W 14:04 → SUATTDRO 14:04 → 2W 17:47